=== PATIENT | female | born 1975 | race Caucasian/White ===

== ENCOUNTER → 2016-12-17 | Outpatient (CLI) | payer MEDICAID ==
[~2016-12-17] MED LIST: BACTRIM DS 8001 TA1 PO; PENICILLIN VK250 MG PO; PYRIDIUM200 M2 PO
[2016-12-17 19:45] LABS: HEMOGLOBIN 16.1 g/dL (12.2-16.2); LYMPH # 2.1 K/mm3 (0.7-4.5); LYMPH % 29.2 % (10-50.0)
[2016-12-18 12:18] LABS: BUN 13 mg/dL (7-18)
[2016-12-18 12:20] LABS: GFR (ESTIMATED) 69 ML/MIN (59-)
[2016-12-20 12:36] LABS: Vitamin B12 495 pg/mL (211-946)
[2016-12-21 14:40] LABS: Alpha-1-Globulin 0.2 g/dL (0.0-0.4); Alpha-2-Globulin 0.7 g/dL (0.4-1.0); Gamma Globulin 1.2 g/dL (0.4-1.8); Protein, Total 7.3 g/dL (6.0-8.5)
[2016-12-21 18:40] LABS: Antinuclear Antibodies, IFA Negative (.)
[2016-12-24 03:36] LABS: 1,25-Dihydroxy, Vitamin D-2 <10 pg/mL (.); 1,25-Dihydroxy, Vitamin D-3 40 pg/mL (.); Total 1,25-Dihydroxy,Vitamin D 41 pg/mL (.)
== END ==
LOC: LAB 18:25
PROVIDERS: Nurse Practitioner Family
DX: R41.3 Other amnesia (principal); R53.1 Weakness

== ENCOUNTER 2017-04-02 16:00 | Emergency (ER) | payer MEDICAID ==
[~2017-04-02] VITALS: Ht 170.2 cm; Wt 95.3 kg
[~2017-04-02 16:00] MED LIST changes: +ANUSOL-HC25 M1 RC; +FLEET REGU133 ML/BOT PR
[2017-04-02] MEDS ORDERED: NAPROXEN SODIU500 MG PO (16:19)
[2017-04-02] MEDS ORDERED: FLEXERIL10 MG PO (16:19)
--- NOTE | 2017-04-02 16:20 | Emergency Room Report ---
History of Present Illness Time Seen by [id number] Presenting Problem in Triage Pt arrived:Walked Presenting Problem:PT C/O PAIN IN HER RIGHT LOWER BACK THAT STARTED A COUPLE OF DAYS AGO AND HAS GOTTEN PROGRESSIVELY WORSE. 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 N Clinical Suspician of Infection? N Mental Status: 1 - Regular (Normal Baseline) Sepsis Risk:Low Sepsis Risk Have you (or family members/close friends) recently traveled outside the [place]? N If Yes, where/when: Have you had exposure to infectious disease within the past month? N TB? Other? Specify: Low back pain, with hx of same; took some old muscle relaxers with some relief, but is almost out. Also took Ibuprofen today. No urinary sx; no loss of bowel or bladder function; no acute neurological sx; pain is nonradiating. No acute trauma. ALLERGIES Coded Allergies: No Known Drug Allergies (08/11/15) Home Medications Reported Medications No Known Home Medications History Medical History General CAD? No Angina: No NE: No Hypertension? No Hyperlipidemia? No CHF? No DVT? No PE? No COPD? No Asthma? No Anemia? No GERD? No Gastric ulcers? No GI Bleed? No Hernia? No Thyroid Problems? No Hypothyroidism? No CVA? No Seizures? No Diabetes? No Renal Insuffiency? No End Stage Renal Disease? No UTI? No Stones? No GB Disease: Yes Nephritic Syndrome? No Asplenia? No Hepatitis? No Sickle Cell Disease? No Arthritis? No Migraines? No Cataracts? No Glaucoma? No MRSA? No HIV? No TB? No Anxiety? No Depression? No Cancer? 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 Cardiovascular normal exam, regular rate/rhythm Peripheral Pulses Pulses normal Yes Back muscle spasm (lower lumbar trigger point), strt leg raising(L)-NML, strt leg raising(R)-NML Extremities non-tender, normal range of motion, normal inspection, normal capillary refill, no calf tenderness, no pedal edema Strength 5 Upper Ext (L), 5 Upper Ext (R), 5 Lower Ext (L), 5 Lower Ext (R) Neurologic alert, normal exam, no motor/sensory deficits, oriented x 3 Glascow Coma Scale Glascow Coma Scale Response Value EYE response: 4 Spontaneously 4 MOTOR response: 6 OBEYS 6 VERBAL response: 5 Oriented & Converses 5 Total 15 Reflexes Reflexes normal Yes Skin intact, normal color, warm/dry, no rash cons.w/shingles Medical Decision Making LABS/Meds/Orders Pt receiving controlled substance in ED? No Departure Departure Time of Disposition 1617 Disposition DC Home or Self Care(routine) Clinical Impression Primary Impression: Lower back pain Qualifiers: Chronicity: unspecified Back pain laterality: right Sciatica presence: without sciatica Qualified Code: M54.5 - Low back pain Condition STABLE Referrals Jaspal HOOPER,Dayday Hopson (Family) Patient Instructions Low Back Pain Additional Instructions Naproxen, Flexeril, see Dr. Shay next week. Prescriptions Current Visit Scripts NAPROXEN (NAPROXEN 500MG TAB) 500 MG PO BIDP PRN muscular pain #20 TAB Cyclobenzaprine Hcl (Flexeril) 5 MG PO BID PRN muscle spasm #6 TAB ED Critical Care Critical Care No at 1616
--- NOTE | 2017-04-02 16:20 | Emergency Room Report ---
History of Present Illness Time Seen by [id number] Presenting Problem in Triage Pt arrived:Walked Presenting Problem:PT C/O PAIN IN HER RIGHT LOWER BACK THAT STARTED A COUPLE OF DAYS AGO AND HAS GOTTEN PROGRESSIVELY WORSE. 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 N Clinical Suspician of Infection? N Mental Status: 1 - Regular (Normal Baseline) Sepsis Risk:Low Sepsis Risk Have you (or family members/close friends) recently traveled outside the [place]? N If Yes, where/when: Have you had exposure to infectious disease within the past month? N TB? Other? Specify: Low back pain, with hx of same; took some old muscle relaxers with some relief, but is almost out. Also took Ibuprofen today. No urinary sx; no loss of bowel or bladder function; no acute neurological sx; pain is nonradiating. No acute trauma. ALLERGIES Coded Allergies: No Known Drug Allergies (08/11/15) Home Medications Reported Medications No Known Home Medications History Medical History General CAD? No Angina: No [place]: No Hypertension? No Hyperlipidemia? No CHF? No DVT? No PE? No COPD? No Asthma? No Anemia? No GERD? No Gastric ulcers? No GI Bleed? No Hernia? No Thyroid Problems? No Hypothyroidism? No CVA? No Seizures? No Diabetes? No Renal Insuffiency? No End Stage Renal Disease? No UTI? No Stones? No GB Disease: Yes Nephritic Syndrome? No Asplenia? No Hepatitis? No Sickle Cell Disease? No Arthritis? No Migraines? No Cataracts? No Glaucoma? No MRSA? No HIV? No TB? No Anxiety? No Depression? No Cancer? 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 Cardiovascular normal exam, regular rate/rhythm Peripheral Pulses Pulses normal Yes Back muscle spasm (lower lumbar trigger point), strt leg raising(L)-NML, strt leg raising(R)-NML Extremities non-tender, normal range of motion, normal inspection, normal capillary refill, no calf tenderness, no pedal edema Strength 5 Upper Ext (L), 5 Upper Ext (R), 5 Lower Ext (L), 5 Lower Ext (R) Neurologic alert, normal exam, no motor/sensory deficits, oriented x 3 Glascow Coma Scale Glascow Coma Scale Response Value EYE response: 4 Spontaneously 4 MOTOR response: 6 OBEYS 6 VERBAL response: 5 Oriented & Converses 5 Total 15 Reflexes Reflexes normal Yes Skin intact, normal color, warm/dry, no rash cons.w/shingles Medical Decision Making LABS/Meds/Orders Pt receiving controlled substance in ED? No Departure Departure Time of Disposition 1617 Disposition DC Home or Self Care(routine) Clinical Impression Primary Impression: Lower back pain Qualifiers: Chronicity: unspecified Back pain laterality: right Sciatica presence: without sciatica Qualified Code: M54.5 - Low back pain Condition STABLE Referrals Jaspal HOOPER,Dayday Hopson (Family) Patient Instructions Low Back Pain Additional Instructions Naproxen, Flexeril, see Dr. Shay next week. Prescriptions Current Visit Scripts NAPROXEN (NAPROXEN 500MG TAB) 500 MG PO BIDP PRN muscular pain #20 TAB Cyclobenzaprine Hcl (Flexeril) 5 MG PO BID PRN muscle spasm #6 TAB ED Critical Care Critical Care No at 1613
--- OUTSIDE RECORDS SUMMARY | 2017-04-02 16:21 | External Medical Summary Rpt ---
Author Author , LUIS Reece LUIS Address Unknown Phone [email or web address] Providers Care Endocrinology Nurse Name Role Phone ARNOLD LEIA, ARNOLD Unavailable Unavailable LEIA ARNOLD LEIA, ARNOLD Unavailable Unavailable LEIA GABRIEL BRO, GABRIEL Unavailable Unavailable BRO GABRIEL BRO, GABRIEL Unavailable Unavailable BRO WISE TER, WISE TER Unavailable Unavailable ALYNE, LAYNE Unavailable Unavailable LAYNE ALL, LAYNE ALL Unavailable Unavailable VIDALES PATRIA, VIDALES Unavailable Unavailable PATRIA VIDALES PATRIA, VIDALES Unavailable Unavailable [facility] Un[facility]available [facility] Unavailable Unavailable [facility] Unavailable Unavailable [facility] PASCALE RODRIGUEZ, Unavailable Unavailable PASCALE RODRIGUEZ PASCALE RODRIGUEZ, Unavailable Unavailable PASCALE RODRIGUEZ JORJE SUKUMAR, JORJE Unavailable Unavailable SUKUMAR ROSALES, ROSALES Unavailable Unavailable FRYMAN, FRYMAN Unavailable Unavailable FRYMAN EUG, FRYMAN Unavailable Unavailable EUG LEIF SUKUMAR, LEIF Unavailable Unavailable SUKUMAR [facility] Un[facility] Un[facility], [facility] Unavailable Unavailable [facility], [facility] VALLE YOMI, VALLE YOMI Unavailable Unavailable VALLE YOMI, VALLE YOMI Unavailable Unavailable [facility], Unavailable Unavailable [facility], Unavailable Unavailable [facility] PRUITT TRA, PRUITT TRA Unavailable Unavailable [facility] COYLE ZULEIKA, COYLE Unavailable Unavailable ZULEIKA COYLE ZULEIKA, COYLE Unavailable Unavailable ZULEIKA ABDIEL HAM, ABDIEL HAM Unavailable Unavailable ABDIEL HAM, ABDIEL HAM Unavailable Unavailable LAUREN SHANNAN, Unavailable Unavailable LAUREN SHANNAN LAUREN SHANNAN, Unavailable Unavailable LAUREN SHANNAN TRE LUNSFORD MD, Unavailable Unavailable TRE TA, Unavailable Unavailable ELSIE ALVARENGA, JON LYLE Unavailable Unavailable [facility]available [facility], [facility] PAVEZ, PAVEZ Unavailable Unavailable PICKLESIMER JR, Unavailable Unavailable PICKLESIMER JR SADEK, SADEK Unavailable Unavailable SCH[facility]STAD SYLVESTER, Unavailable Unavailable SCHULSTAD SYLVESTER [facility] SYLVESTER, Unavailable Unavailable [facility]ST[facility] SYLVESTER SCIFRES ANG, SCIFRES Unavailable Unavailable ANG SCIFRES ANG, SCIFRES Unavailable Unavailable ANDRE SNOWDEN, YOGI Unavailable Unavailable ISI FRANCO, Unavailable Unavailable SENG GALAN, JOAN GALAN Unavailable Unavailable Purpose Continuity of Care Document - 04-13-2012 through 2016 Problems Code Diagnosis DOS Provider Status [id number] ENCOUNTER 02-17-2017 [facility] GENERAL RTN W/O ABNORMAL FIND Z113 ENCOUNTER 02-17-2017 [facility] SCREEN [facility] INFECTIONS SEXL MODE TRANSMISSN R413 OTHER 02-03-2017 [facility] R51 HEADACHE 02-03-2017 [facility] R5383 OTHER 02-03-2017 [facility] [id number] ATTENTION 01-24-2017 [facility] CONCENTRATI GROUP ON DEFICIT K5900 CONSTIPATIO 01-14-2017 [facility] N PHYSICIANS UNSPECIFIED GROUP K649 UNSPECIFIED 01-14-2017 [facility] HEMORRHOIDS GROUP K644 RESIDUAL 01-12-2017 [facility] HEMORRHOIDA PHYSICIANS, L SKIN TAGS [facility] L089 LOCAL INF 12-17-2016 [facility] THE SKIN & PHYSICIANS SUBCUTANEOU GROUP S TISSUE UNS L729 FOLLICULAR 12-17-2016 [facility] CYST THE PHYSICIANS SKIN & SUBQ GROUP TISSUE UNS M6289 OTHER 12-17-2016 [facility] SPECIFIED PHYSICIANS DISORDERS GROUP OF MUSCLE R350 FREQUENCY 12-17-2016 [facility] OF [facility]ICIANS MICTURITION GROUP R531 WEAKNESS 12-17-2016 [facility] GROUP N390 URINARY 12-11-2016 [facility] INFECTION INC SITE NOT SPECIFIED Z720 TOBACCO USE 12-11-2016 [facility] INC K047 PERIAPICAL 10-22-2016 [facility] WITHOUT INC SINUS H6690 OTITIS 04-26-2016 [facility] MEDIA PHYSICIAN UNSPECIFIED GROUP UNSPECIFIED EAR J069 ACUTE UPPER 04-26-2016 [facility] PHYSICIAN RESPIRATORY GROUP INFECTION UNSPECIFIED J0190 ACUTE 01-07-2016 [facility] SINUSITIS PHYSICIANS UNSPECIFIED GROUP L0591 PILONIDAL 10-15-2015 [facility] CYST PHYSICIANS WITHOUT GROUP ABSCESS H524 PRESBYOPIA 09-29-2015 LEONARD CELAYA J329 CHRONIC 08-19-2015 [facility] SINUSITIS PHYSICIANS UNSPECIFIED GROUP H9193 UNSPECIFIED 07-04-2015 [facility] HEARING PHYSICIANS LOSS GROUP BILATERAL 34177 ACUT 05-28-2015 [facility] MEDIA W/O SPONT RUP EARDRUM 7234 BRACHIAL 04-16-2015 [facility] NEURITIS OR PHYSICIANS GROUP RADICULITIS NOS 20269 OTHER 04-16-2015 [facility] MALAISE AND PHYSICIANS FATIGUE GROUP 41979 ATTENTION 04-16-2015 [facility] OR PHYSICIANS CONCENTRATI GROUP ON DEFICIT 5990 URINARY 04-03-2015 [facility] TRACT PHYSICIANS INFECTION GROUP SITE NOT SPECIFIED 7840 HEADACHE 04-03-2015 SENG FRANCO 28943 HEADACHE 03-25-2015 [facility]UAL [facility] ACTIVITY 7231 CERVICALGIA 03-01-2015 [facility] 74986 JAW PAIN 03-01-2015 [facility] 8472 LUMBAR 03-01-2015 [facility], STRAIN PLL 8509 UNSPECIFIED 03-01-2015 [facility] CONCUSSION [facility], [facility] 920 CONTUSION 03-01-2015 [facility] OF FACE [facility]YS[facility], [facility] AND [facility] NECK EXCEPT EYE 33225 INJURY OF 03-01-2015 [facility] OTHER IMAGING ASS AND UNSPECIFIED 4610 ACUTE 01-20-2015 [facility] SINUS[facility]IS HOSPITAL 462 ACUTE 12-17-2014 [place] [facility] 29112 UNS 10-15-2014 [facility] GASTRITIS&G ASTRODUODIT IS W/O MENTION HEMORR 4619 ACUTE 08-17-2014 [facility] SINUSITIS, UNSPECIFIED 3674 PRESBYOPIA 06-14-2014 SCIFRES ANG V032 NEED PROPH 05-23-2014 [facility] VACCINATION W/TUBERCULO SIS VACCINE V705 HEALTH 05-23-2014 [facility] [place] [address] OBESITY, 05-01-2014 [facility] UNSPECIFIED 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 53760 UNSPECIFIED 03-25-2014 [facility] ZULEIKA ACUTE NONSUPPURAT MANDY OTITIS MEDIA 4779 ALLERGIC 03-25-2014 [facility] ZULEIKA RHINITIS CAUSE UNSPECIFIED 94696 OSTEOARTHRO 02-05-2014 [facility] S INVLV MX SITES BUT NOT SPEC GEN 3829 UNSPECIFIED 11-19-2013 [facility] OTITIS MEDIA 4660 ACUTE 11-19-2013 [facility] BRONCHITIS 3814 NONSUPPRATV 09-20-2013 [facility] VIC OTITIS MEDIA NOT SPEC ACUT/CHRON 470 DEVIATED 09-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 7242 LUMBAGO 01-19-2013 [facility] 7213 LUMBOSACRAL 12-07-2012 ABDIEL HAM SPONDYLOSIS WITHOUT MYELOPATHY 7245 UNSPECIFIED 11-24-2012 [facility] BACKACHE 7243 SCIATICA 10-27-2012 [facility] 4871 INFLUENZA 10-12-2012 [facility] WITH OTHER RESPIRATORY MANIFESTATI ONS 6961 OTHER 08-08-2012 [facility] PSORIASIS AND SIMILAR DISORDERS 6262 EXCESSIVE 05-12-2012 VIDALES PATRIA OR FREQUENT MENSTRUATIO N 6268 OTH D/O 05-12-2012 COMMUNITY MENSTRUATIO ANESTH OF N&OTH ABN THE BLUE BLEED FE GNT TRACT V7231 ROUTINE 05-10-2012 [facility] GYNECOLOGIC AL EXAMINATION 2181 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-03-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 3688 OTHER 05-03-2012 [place] V[facility]UAL [facility] ASS DISTURBANCE S 6170 ENDOMETRIOS 05-03-2012 [facility] IS OF UTERUS 6212 HYPERTROPHY 05-03-2012 VIDALES [place] OF UTERUS 7804 DIZZINESS 05-03-2012 [place] [facility] V692 PROBLEMS 04-19-2012 [facility] RELATED TO PHYSICIANS HIGH-RISK [facility] SEXUAL BEHAVIOR 05399 PRADIP 04-17-2012 LAUREN MIGRAINE SHANNAN NEC W/O INTRACT W/O STAT MIGRNOSUS 4770 ALLERGIC 04-17-2012 LAUREN RHINITIS SHANNAN DUE TO POLLEN 4772 ALLERGIC 04-17-2012 LAUREN RHINITIS SHANNAN DUE TO ANIMAL HAIR AND DANDER 4778 ALLERGIC 04-17-2012 LAUREN RHINITIS SHANNAN DUE TO OTHER ALLERGEN V727 DIAGNOSTIC 04-17-2012 LAUREN SKIN AND SHANNAN SENSITIZATI ON TESTS V720 EXAMINATION 04-13-2012 SCIFRES ANG OF EYES AND VISION K59.00 CONSTIPATIO N, UNSPECIFIED K64.4 RESIDUAL HEMORRHOIDA L SKIN TAGS S00.83XA CONTUSION OF OTHER PART OF HEAD, INITIAL ENCOUNTER S06.0X9A CONCUSSION W LOSS OF CONSCIOUSNE SS OF UNSP DURATION, INIT S16.1XXA STRAIN OF MUSCLE, FASCIA AND TENDON AT NECK LEVEL, INIT Allergies, Adverse Reactions, Alerts Type Allergy to substance Drug Allergy Adverse Reaction to Substance Substance Reaction Severity INGREDIENT: NO KNOWN Unknown Unknown - NO KNOWN DRUG ALLERGY No Known Drug Unknown Unknown Allergies Medications Na ND Rx Da Fi Fi Am Da Di Ph RX Ph St me C No te ll ll ou ys ag ar # ys at rm s nt no ma ic us Or Da si cy ia de te s n re d CI 13 06 07 30 30 00 RI Ac TA 66 -1 -2 .0 00 TE ti LO 80 5- 1- 00 01 ve AZ 00 20 20 18 AI AM 90 17 17 81 D 1 30 PH HB AR R MA 10 CY MG #3 93 TA 8 BL ET LE 00 06 07 30 30 00 RI Ac VO 37 -0 -0 .0 00 TE ti TH 81 7- 7- 00 01 ve YR 80 20 20 18 AI OX 07 17 17 15 D IN 7 93 PH E AR 25 MA CY MC G #3 TA 93 BL 8 ET PO 62 05 06 52 30 00 RI Ac LY 17 -1 -0 7. 00 TE ti ET 50 0- 9- 00 01 ve HY 44 20 20 0 18 AI LE 23 17 17 34 D NE 1 66 PH AR GL MA YC CY OL #3 33 93 50 8 PO WD HY 00 05 06 [address] 47 -1 -0 .0 00 TE ti OC 20 0- 9- 00 01 ve OR 33 20 20 18 AI TI 73 17 17 34 D SO 0 59 PH NE AR MA 2. CY 5% #3 CR 93 EA 8 M CE 65 04 06 20 10 00 RI Ac PH 86 -2 -0 .0 00 TE ti AL 20 8- 2- 00 01 ve EX 01 20 20 18 AI IN 90 17 17 16 D 1 74 PH 50 AR 0 MA MG CY CA #3 PS 93 UL 8 E LE 00 04 05 30 30 00 RI Ac VO 37 -2 -2 .0 00 TE ti TH 81 6- 6- 00 01 ve YR 80 20 20 18 AI OX 07 17 17 15 D IN 7 93 PH E AR 25 MA CY MC G #3 TA 93 BL 8 ET FL 68 04 05 3. 9 00 RI Ac UC 46 -1 -1 00 00 TE ti ON 20 0- 2- 0 01 ve AZ 10 20 20 17 AI OL 34 17 17 92 D E 0 32 PH 15 AR 0 MA MG CY TA #3 BL 93 ET 8 WORKMAN 53 04 05 10 5 00 RI Ac LF 48 -0 -1 .0 00 TE ti AM 90 8- 2- 00 01 ve ET 14 20 20 17 AI HO 60 17 17 90 D XA 1 88 PH ZO AR LE MA -T CY MP #3 DS 93 8 TA BL ET PH 42 04 05 6. 2 00 RI Ac EN 19 -0 -1 00 00 TE ti AZ 20 8- 2- 0 01 ve OP 80 20 20 17 AI YR 20 17 17 90 D ID 1 89 PH IN AR E MA 20 CY 0 MG #3 93 TA 8 B AZ 50 12 04 6. 5 00 RI Ac IT 11 -0 -0 00 00 TE ti HR 10 4- 7- 0 01 ve OM 78 20 20 10 AI YC 76 15 17 92 D IN 6 88 PH AR 25 MA 0 CY MG #3 TA 93 BL 8 ET PE 16 02 03 21 7 00 RI Ac NI 71 -1 -2 .0 00 TE ti CI 40 7- 4- 00 01 ve LL 23 20 20 17 AI IN 40 17 17 16 D 1 64 PH VK AR MA 25 CY 0 MG #3 93 TA 8 BL ET SO 00 10 0 No DI 40 -0 UM 97 3- Lo 98 20 ng CH 30 13 er LO 9 RI Ac DE ti ve 0. 9% SO HARDIK TI ON Sa 63 10 0 No li 80 -0 ne 70 3- Lo 10 20 ng Fl 07 13 er us 5 h Ac 10 ti ML ve Sy ri ng e KE 00 10 0 No TO 40 -0 RO 93 3- Lo LA 79 20 ng C 50 13 er 30 1 Ac MG ti /M ve L AL Vital Signs 06-07-2013 21:27 Name Value Interpretat Reference Comment ion Range BP 70 mm[Hg] Diastolic BP Systolic 129 mm[Hg] Heart 62 /min Rate/Pulse O2% 96 % Respiratory 20 /min Rate 06-07-2013 20:06 Name Value Interpretat Reference Comment ion Range BP 74 mm[Hg] Diastolic BP Systolic 147 mm[Hg] Heart 79 /min Rate/Pulse O2% 97 % Respiratory 20 /min Rate Results Labs Lab Lab Date Result Refere Interp Status Commen Order Detail nces retati t Range on COMPREHENSIVE METABOLIC PANEL (06-07-2013 20:20) Glucose 111 74-106 complet 013 mg/dL ed Bld-mCn 20:20 c BUN 11 7-18 complet Bld-mCn 013 mg/dL ed c 20:20 Creat 0.8 0.6-1.0 complet SerPl-m 013 mg/dL ed Cnc 20:20 GFR 80 59- complet (ESTIMA 013 ML/MIN ed JOHN) 20:20 Sodium 140 136-145 complet SerPl-s 013 mmoL/L ed Cnc 20:20 Potassi 3.7 3.5-5.1 complet um 013 mmoL/L ed SerPl-s 20:20 Cnc Chlorid 103 98-107 complet e 013 mmoL/L ed SerPl-s 20:20 Cnc CO2 27 21.0-32 complet SerPl-s 013 mmoL/L .0 ed Cnc 20:20 Calcium 8.2 8.5-10. complet 013 mg/dL 1 ed SerPl-m 20:20 Cnc Prot 6.5 6.4-8.2 complet SerPl-m 013 gm/dL ed Cnc 20:20 Albumin 3.4 3.4-5.0 complet 013 gm/dL ed SerPl-m 20:20 Cnc Globuli 10-03-2 3.1 1.3-3.2 complet n 013 gm/dL ed Ser-mCn 20:20 c Albumin 06-07-2 1.1 UNK 1.1-1.8 complet /Glob 013 ed SerPl-m 20:20 Rto Bilirub 2 0.3 0.2-1.0 complet 013 mg/dL ed SerPl-m 20:20 Cnc AST 06-07-2 16 U/L 15-37 complet SerPl-c 013 ed Cnc 20:20 ALT 06-07-2 37 U/L 30-65 complet SerPl-c 013 ed Cnc 20:20 ALP 06-07-2 104 U/L 50-136 complet SerPl-c 013 ed Cnc 20:20 Amylase SerPl-cCnc (06-07-2013 20:20) Amylase 06-07-2 31 U/L 25-115 complet 013 ed SerPl-c 20:20 Cnc LIPASE (06-07-2013 20:20) LIPASE 03-2 108 U/L 73-393 complet 013 ed 20:20 CBC with AUTO DIFF (06-07-2013 20:20) WBC # 03-2 9.8 4.8-10. complet Bld 013 K/MM3 8 ed Auto 20:20 RBC # 1003-2 4.15 4.2-5.4 complet Bld 013 M/mm3 ed Auto 20:20 Hgb 03-2 13.8 12.2-16 complet Bld-mCn 013 g/dL .2 ed c 20:20 Hct Fr 06-07- 39.2 % 37.0-47 complet Bld 013 .0 ed 20:20 MCV RBC 06-07-2 94.4 fl 82.2-97 complet 013 .8 ed 20:20 MCH RBC 03-2 33.3 pg 27-31.2 complet Qn 013 ed Auto 20:20 MEAN 06-07-2 35.3 31.8-35 complet CORPUSC 013 g/dl .4 ed ULAR 20:20 HGB CONC RDW RBC 03-2 14.3 % 11.5-17 complet Auto 013 .5 ed 20:20 Platele 06-07-2 249 142-424 complet t Bld 013 K/mm3 ed Ql 20:20 Manual MEAN 10--2 8.1 fl 7.4-10. complet PLATELE 013 4 ed T 20:20 VOLUME Granulo 10-03-2 67.5 % 37.0-80 complet cytes 013 .0 ed Fr Bld 20:20 Auto LYMPH % 10-03-2 22.8 % 10-50.0 complet 013 ed 20:20 Monocyt 10-03-2 5.7 % 1.7-9.3 complet es Fr 013 ed Bld 20:20 Auto Eosinop 10-03-2 3.5 % 0.1-12. complet hil Fr 013 0 ed Bld 20:20 Auto Basophi 10-03-2 0.6 % 0.1-2.0 complet ls Fr 013 ed Bld 20:20 Auto Granulo 10-03-2 6.6 1.8-7.8 complet cytes # 013 K/mm3 ed Bld 20:20 Auto Lymphoc 10-03-2 2.2 0.7-4.5 complet ytes Fr 013 K/mm3 ed Bld 20:20 Auto Monocyt 10-03-2 0.6 0.1-1.0 complet es # 013 K/mm3 ed Bld 20:20 Auto Eosinop 10-03-2 0.3 0.0-0.4 complet hil # 013 K/mm3 ed Bld 20:20 Auto Basophi 10-03-2 0.1 0-0.2 complet ls # 013 K/MM3 ed Bld 20:20 Auto URINALYSIS/COMPLETE (06-07-2013 19:35) URINE 06-07-2 YELLOW YELLOW complet COLOR 013 ed 19:35 URINE 06-07-2 CLEAR CLEAR complet APPEARA 013 ed NCE 19:35 URINE 06-07-2 NEGATIV NEG complet GLUCOSE 013 E ed - 19:35 DIPSTIC K URINE 06-07-2 NEGATIV NEG complet BILIRUB 013 E ed IN - 19:35 DIPSTIC K URINE 06-07-2 NEGATIV NEG complet KETONE 013 E mg/dL ed 19:35 URINE 06-07-2 1.020 1.005-1 complet SPECIFI 013 UNK .030 ed C 19:35 GRAVITY URINE 06-07-2 TRACE-L NEG complet BLOOD 013 YSED ed 19:35 URINE 06-07-2 7.0 UNK 5.0-8.5 complet PH 013 ed 19:35 URINE 2 NEGATIV NEG complet PROTEIN 013 E mg/dL ed - 19:35 DIPSTIC K URINE 06-07-2 0.2 NEG complet UROBILI 013 E.U./dL ed NOGEN - 19:35 DIPSTIC K URINE 06-07-2 NEGATIV NEG complet NITRATE 013 E ed - 19:35 DIPSTIC K URINE 06-07-2 NEGATIV NEG complet LEUK 013 E ed ESTERAS 19:35 E URINE 06-07-2 OCC 0 complet RBC 013 rbc/hpf ed 19:35 URINE 06-07-2 OCC O complet WBC 013 wbc/hpf ed 19:35 URINE 10-20 0-5 complet SQUAMOU 013 #/hpf ed S CELLS 19:35 URINE TRACE O complet BACTERI 013 ed A 19:35 Procedures Procedure DOS Code Location Performer Comment CYTP C/V 34552 [facility] AUT[facility] THIN [facility] ER JR LYR PREPJ SCR MNL RESCR PHYS IADNA 83692 [facility] NEISSERIA [facility] ER JR GONORRHOE AE AMPLIFIED PROBE TQ IADNA 52732 [facility] CHLAMYDIA [facility] ER JR TRACHOMAT IS AMPLIFIED PROBE TQ MRI BRAIN 33371 [place] [facility] BRAIN 7 MEDICAL STEM W/O IMAGING W/CONTRAS ASS T MATERIAL BLOOD 00999 [facility] COMPLETE INC INC AUTO&[place] [address] [facility] FREE [facility] [place] [address] [facility] THYROID [facility] STIMULATI INC INC NG HORMONE TSH COMPREHEN 50437 [facility] SIVE [facility] METABOLIC INC INC PANEL ANTINUCLE 01020 [facility] AR [facility] ANTIBODIE INC INC S BARRY CYANOCOBA 56587 [facility] KEISHA [facility] VITAMIN INC INC B-12 PROTEIN 42247 [facility] ELECTROPH 7 [facility] ORETIC INC INC FRACTJ&QU ANTJ SERUM SEDIMENTA 66582 [facility] TION RATE 7 [facility] RBC INC INC NON-AUTOM ATED CULTURE 95119 [facility] BACTERIAL [facility] INC INC QUANTTATI VE COLONY COUNT URINE URNLS DIP 45143 [facility] 7 [facility] STICK/TAB INC INC LET RGNT AUTO W/O MICROSCOP Y THERAPEUT [address]8521 [facility] ROSAL[facility] IC 6 PHYSICIAN PROPHYLAC GROUP TIC/DX INJECTION SUBQ/IM INJECTION J0696 [facility] 6 PHYSICIAN CEFTRIAXO GROUP NE SODIUM PER 250 MG OPHTH 14889 [facility] 6 XM&EVAL COMPRHNSV ESTAB PT 1/> THERAPEUT 97315 [facility] PHYSICIAN SUKUMAR PROPHYLAC S GROUP TIC/DX INJECTION SUBQ/IM INJECTION J0696 [facility] 6 PHYSICIAN SUKUMAR CEFTRIAXO S GROUP NE SODIUM PER 250 MG INJECTION J1040 [facility] 6 PHYSICIAN SUKUMAR METHYLPRE S GROUP DNISOLONE ACETATE 80 MG INJECTION J1040 [facility] 5 PHYSICIAN SUKUMAR METHYLPRE S GROUP DNISOLONE ACETATE 80 MG INJECTION J0696 [facility] 5 PHYSICIAN SUKUMAR CEFTRIAXO S GROUP NE SODIUM PER 250 MG THERAPEUT 37535 [facility] IC 5 PHYSICIAN SUKUMAR PROPHYLAC S GROUP TIC/DX INJECTION SUBQ/IM THERAPEUT 13846 [facility] KAYE IC 5 [facility] TIC/DX INJECTION SUBQ/IM INJECTION J1100 [facility] 5 [facility] SONE [place] [address] [place] [address] SENG GALAN HEAD/BRAI 5 Haroldo FRANCO N W/O CONTRAST MATERIAL CULTURE 84139 [facility] BACTERIAL 5 [facility] INC INC QUANTTATI VE COLONY COUNT URINE LOCM Q9967 [facility] [phone] 5 [facility] MG/ML INC [place] [address] [place] [facility] 5 MEDICAL RODRIGUEZ HY HEAD IMAGING W/CONTRAS ASS T/[place] [address] [facility] ALL MAXILLOFA 5 MEDICAL CIAL W/[place] [address] [facility] ALL HEAD/BRAI 5 MEDICAL N W/[place] [address] [place] [facility] ALL CERVICAL 5 MEDICAL SPINE W/O IMAGING CONTRAST ASS MATERIAL THERAPEUT 14097 [facility] RECINOS IC 5 [facility] TIC/DX INJECTION SUBQ/IM INJECTION J0696 [facility] KHANRON 5 [facility] NE SODIUM PER 250 MG INJECTION J1040 [facility] RECINOS 5 [facility] DNISOLONE ACET[place] [address] [place] [address] [facility] HEAD/BRAI 5 [facility] N W/O INC INC CONTRAST MATERIAL COLLECTIO 72408 [facility] N VENOUS 5 [facility] [place] [address] [facility] FREE 5 [facility] THYROXINE INC INC 25 73315 [facility] HYDROXY 5 [facility] INCLUDES INC INC FRACTIONS IF PERFORMED COMPREHEN 33811 [facility] SIVE 5 [facility] [address] [facility] THYROID 5 [facility] STIMULATI INC INC NG HORMONE TSH BLOOD 52894 [facility] COUNT 5 [facility] COMPLETE INC INC AUTO&AUTO DIFRNTL WBC OPHTH 30856 [facility] 4 ANG ANG XM&EVAL COMPRHNSV ESTAB PT 1/> SKIN TEST 33268 [facility] AGUILA 4 LEIA LEIA TUBERCULO SIS INTRADERM AL INJECTION J3420 [facility] AGUILA VIT B-12 4 LEIA LEIA CYANOCOBA KEISHA TO 1000 MCG INJECTION J3420 [facility] AGUILA VIT B-12 4 LEIA LEIA CYANOCOBA KEISHA TO 1000 MCG INJ J0702 [facility] AGUILA BETAMETHA 4 LEIA LEIA SONE ACETATE & PHOSPHATE 3 MG INJECTION J3420 [facility] AGUILA VIT B-12 4 LEIA LEIA CYANOCOBA KEISHA TO 1000 MCG INJECTION J3420 [facility] VIT B-12 4 LEIA LEIA CYANOCOBA KEISHA TO 1000 MCG INJECTION J0696 [facility] 4 LEIA LEIA CEFTRIAXO NE SODIUM PER 250 MG INJ J0702 [facility] BETAMETHA 4 LEIA LEIA SONE ACETATE & PHOSPHATE 3 MG INJECTION J3420 [facility] VIT B-12 4 LEIA LEIA CYANOCOBA KEISHA TO 1000 MCG INJECTION J3420 [facility] VIT B-12 3 LEIA LEIA CYANOCOBA KEISHA TO 1000 MCG ESOPHAGOG 87464 ERIK VALENCIA ASTRODUOD 3 SYLVESTER SYLVESTER ENOSCOPY TRANSORAL DIAGNOSTI C COLONOSCO 67885 ERIK VALENCIA PY FLX DX 3 SYLVESTER SYLVESTER W/COLLJ SPEC WHEN PFRMD RADEX ABD 23513 PASCALE PASCALE COMPL 3 RODRIGUEZ RODRIGUEZ AQT ABD W/S/E/D VIEWS 1 [place] [address] [facility] THERAPY/P INC INC ROPHYLAXI S /DX 1ST TO 1 HR THERAPEUT 87557 [facility] IC [facility] INJECTION INC [place] [address] [facility]ION [facility] THERAPY INC INC PROPHYLAX IS/DX EA HOUR URNLS DIP 18019 [facility] STICK/TAB INC INC LET REAGENT AUTO MICROSCOP Y BLOOD 65904 [facility] COUNT 3 [facility] COMPLETE INC INC AUTO&[place] [address] [facility] LIPASE 3 [facility] INC INC COMPREHEN 82706 [facility] SIVE [facility] [place] [address] [facility] AMYLASE 3 [facility] INC INC INJECTION J3420 [facility] VIT B-12 3 LEIA LEIA CYANOCOBA KEISHA TO 1000 MCG RADEX 72167 [facility] SPINE 3 [facility] LUMBOSACR INC INC AL MINIMUM 4 VIEWS INJECTION J3420 [facility] VIT B-12 3 LEIA LEIA CYANOCOBA KEISHA TO 1000 MCG INJECTION J0696 [facility] 3 LEIA LEIA CEFTRIAXO NE SODIUM PER 250 MG DRUG SCR G0434 ABDIEL HAM ABDIEL HAM NOT 3 CHROMATOG RAPHIC; ANY NUMBER PT ENC INJECTION J3420 [facility] VIT B-12 3 LEIA LEIA CYANOCOBA KEISHA TO 1000 MCG INJ J0702 [facility] BETAMETHA 3 LEIA LEIA SONE ACETATE & PHOSPHATE 3 MG INJECTION J3420 [facility] VIT B-12 3 LEIA LEIA CYANOCOBA KEISHA TO 1000 MCG INJECTION J3420 [facility] VIT B-12 2 LEIA LEIA CYANOCOBA KEISHA TO 1000 MCG RADEX 10035 PRUITT TRA PRUITT TRA SPINE 2 LUMBOSACR AL 2/3 VIEWS INJECTION J3420 [facility] VIT B-12 2 LEIA LEIA CYANOCOBA KEISHA TO 1000 MCG INJECTION J0696 [facility] 2 LEIA LEIA CEFTRIAXO NE SODIUM PER 250 MG ANES 90858 [facility] HYSTEROSC 2 ANESTH ISI OPY&/HYST OF THE EROSALPIN BLUE GOGRAPHY W/BX HYSTEROSC 85090 FLASH VIDALES OPY 2 PATRIA PATRIA ENDOMETRI AL ABLATION BLOOD 70538 [facility] COUNT [facility] COMPLETE INC INC AUTO&AUTO DIFRNTL WBC BASIC 13394 [facility] METABOLIC 2 [facility] PANEL INC INC CALCIUM TOTAL URNLS DIP 72231 FLASH VIDALES 2 PATRIA PATRIA STICK/TAB LET RGNT NON-AUTO W/O MICRSCP INJ A9577 [facility] GADOBENAT 2 [facility] E INC [place] [address] FLASH VIDALES TRANSVAGI 2 PATRIA PATRIA NAL BLOOD 81768 [facility] COUNT 2 [facility] COMPLETE INC INC AUTO&AUTO DIFRNTL WBC MRI BRAIN 32474 [facility] BRAIN 2 [facility] STEM W/O INC INC W/CONTRAS T MATERIAL ENDOMETRI 33913 FLASH VIDALES AL BX 2 PATRIA PATRIA W/WO ENDOCERVI X BX W/O DILAT SPX CUL BACT 57667 COMBINED COMBINED XCPT 2 PHYSICIAN PHYSICIAN URINE S LA S LA BLOOD/STO OL AEROBIC ISOL ANTIBODY 55314 COMBINED COMBINED CHLAMYDIA 2 PHYSICIAN PHYSICIAN S LA S LA PERCUTANE 60415 LAUREN LAUREN OUS TESTS 2 SHANNAN SHANNAN W/ALLERGE MONICA EXTRACTS INTRACUTA 51000 LAUREN LAUREN NEOUS 2 SHANNAN SHANNAN TESTS W/ALLERGE MONICA EXTRACTS OPHTH 75199 SCIFRES SCIFRES MEDICAL 2 ANG ANG XM&EVAL COMPRE NEW PT 1/> VST DETERMINA 24274 SCIFRES SCIFRES TION 2 ANG ANG [facility] Encounters Encounter Start End Date Code Location Performer Type Date INITIAL 91865 [facility] PREVENTIV 7 7 PHYSICIAN E S GROUP MEDICINE NEW PATIENT 40-[address] [facility] PAVEZ OUTPATIEN 7 7 PHYSICIAN T NEW 45 S GROUP MINUTES OFFICE 83484 [facility] FRYMAN OUTPATIEN 7 7 PHYSICIAN T VISIT S GROUP 15 MINUTES EMERGENCY 40848 [facility] T VISIT LOW/MODER SEVERITY [facility] T EMERGENCY 51328 ELMA SCHUSTER 7 7 PHYSICIAN DEPARTMEN S, PLLC T VISIT MODERATE SEVERITY OFFICE 11912 [facility] OUTPATIEN 7 7 PHYSICIAN T VISIT S GROUP 25 MINUTES [facility] T OFFICE 87153 [facility] 7 7 [facility] T VISIT 5 INC MINUTES OFFICE 76324 [facility]EN 7 7 [facility] T VISIT 5 INC MINUTES [facility] T OFFICE 09345 [facility] ROSALES OUTPATIEN 6 6 PHYSICIAN T VISIT GROUP [address]ES [address] [facility] JORJE OUTPATIEN 6 6 PHYSICIAN SUKUMAR T VISIT S GROUP [address]ES [address] [facility] WISE [facility] OUTPATIEN 6 6 PHYSICIAN T VISIT S GROUP [address]ES [address] [facility] JOJRE OUTPATIEN 6 6 PHYSICIAN SUKUMAR T VISIT S GROUP [address]ES [address] [facility] LEIF OUTPATIEN 5 5 PHYSICIAN SUKUMAR T VISIT S GROUP 10 MINUTES OFFICE 01413 [facility] ROJASADDIS OUTPATIEN 5 5 [facility] [address]ES [address] [facility] MONGIARDO OUTPATIEN 5 5 PHYSICIAN FRA T NEW 30 S GROUP MINUTES OFFICE 95041 [facility] KHANRON OUTPATIEN 5 5 [facility] [address]ES [address] [facility] OUTPATIEN 5 5 PHYSICIAN T VISIT S GROUP [address]ES [address] [facility] OUTPATIEN 5 5 PHYSICIAN T VISIT S GROUP 15 MINUTES [facility] 5 5 [facility] INC T OFFICE 00424 [facility] LEIF OUTPATIEN 5 5 PHYSICIAN SUKUMAR T VISIT S GROUP 15 MINUTES EMERGENCY 39363 ELMA YADAV 5 5 PHYSICIAN SUKUMAR DEPARTMEN S, PLLC T VISIT HIGH/URGE NT SEVERITY OFFICE 46768 [facility] JORJE OUTPATIEN 5 5 [facility] [address]ES [address] [facility] VARGAS OUTPATIEN 5 5 PHYSICIAN EUG T VISIT S GROUP [address]ES [address] [facility] LEIF OUTPATIEN 5 5 PHYSICIAN SUKUMAR T VISIT S GROUP 15 MINUTES [facility] T OFFICE 79964 [facility] OUTPATIEN 5 5 PHYSICIAN T VISIT S GROUP 10 MINUTES OFFICE 49734 [facility] RECINOS OUTPATIEN [address] MINUTES OFFICE 30014 [place] LAWSONEN 5 5 [facility] LEIA T VISIT 15 MINUTES OFFICE 64174 [place] STORM 4 4 [facility] LE[facility] T VISIT 15 MINUTES OFFICE 56790 [place] STORM 4 4 [facility] LEIA T VISIT 15 MINUTES OFFICE 15381 [facility] STORM 4 4 [facility] LE[facility] T VISIT 15 MINUTES OFFICE 06132 [facility] STORM 4 4 [facility] LEIA T VISIT 15 MINUTES OFFICE 93919 JONNA STORM 4 4 ZULEIKA ZULEIKA T VISIT 25 MINUTES OFFICE 58834 [facility] STORM 4 4 [facility] LEIA T VISIT 15 MINUTES OFFICE 69316 [facility] STORM 4 4 [facility] LEIA T VISIT 15 MINUTES OFFICE 68701 [facility] STORM 4 4 [facility] LEIA T VISIT 15 MINUTES OFFICE 88670 [facility] STORM 4 4 [facility] LEIA T VISIT 15 MINUTES OFFICE 46531 [facility] OUTPATIEN 4 4 ZULEIKA ZUELIKA T NEW 30 MINUTES OFFICE 01595 [facility] AGUILA EMETERIO 4 4 [facility] LEIA T VISIT 15 MINUTES OFFICE 90025 [facility] AGU[facility] RENNYEN 4 4 [facility] LEIA T VISIT 15 MINUTES OFFICE 75583 [facility] ANDERSONVIDAEN 3 3 LEIA LEIA T VISIT 15 MINUTES OFFICE 50910 [facility] ANDERSONVIDAEN 3 3 [facility] LEIA T VISIT 15 MINUTES OFFICE 14782 [facility] ANDERSONVIDAEN 3 3 [facility] LEIA T VISIT 15 MINUTES OFFICE 96298 [facility] ANDERSONVIDAEN 3 3 [facility] LEIA T VISIT 15 MINUTES [facility] T Emergency TRENA [facility] LUNSFORD (ER) 3 19:39 3 21:28 [facility] - 3 3 [facility] OUTPATI[facility] INC T EMERGENCY 91705 [facility] 3 3 [facility] T VISIT HIGH/URGE NT SEVERITY OFFICE 39689 [place] ALLIENASIM RENNYEN 3 3 LEIA LEIA T VISIT 15 MINUTES OFFICE 28361 [facility] VALENCIA CONSULTAT 3 3 SYLVESTER SYLVESTER ION NEW/ESTAB PATIENT 60 MIN OFFICE 89419 ALLIENASIM [place] STORM 3 3 [facility] LEIA T VISIT 15 MINUTES OFFICE 50759 ALLIENASIM [place] OUTVIDAEN 3 3 [facility] LEIA T VISIT 15 MINUTES OFFICE 99155 ALLIENASIM [place] STORM 3 3 [facility] LEIA T VISIT 15 MINUTES [facility] T OFFICE 40690 ALLIENASIM [place] STORM 3 3 [facility] LEIA T VISIT 15 MINUTES OFFICE 84087 ABDIEL MILLER OUTPATIEN 3 3 T NEW 45 MINUTES OFFICE 52968 [facility] AGUILA OUTPATIEN 3 3 [facility] LEIA T VISIT 15 MINUTES OFFICE 72385 [facility] AGUILA OUTPATIEN 3 3 LEIA LEIA T VISIT 15 MINUTES OFFICE 02454 [facility] AGUIL[facility] OUTPATIEN 3 3 LEIA LEIA T VISIT 15 MINUTES OFFICE 47943 [facility] AGUILA OUTPATIEN 2 2 LEIA LEIA T VISIT 15 MINUTES OFFICE 08350 PRUITT TRA PRUITT TRA CONSULTAT 2 2 ION NEW/ESTAB PATIENT 60 MIN OFFICE 24208 [facility] AGUILA OUTPATIEN 2 2 [facility] LEIA T VISIT 15 MINUTES OFFICE 83723 JON ALVARENGA OUTPATIEN 2 2 T VISIT 25 MINUTES OFFICE 24623 [place] AGUILA OUTPATIEN 2 2 [facility] LEIA T VISIT 15 MINUTES OFFICE 40045 [place] AGUILA OUTPATIEN 2 2 [facility] LEIA T VISIT 15 MINUTES [facility] T PERIODIC 29214 FL[facility] VIDALES PREVENTIV 2 2 PATRIA PATRIA E MED EST PATIENT 18-39 YRS [facility] 2 [facility] T OFFICE 77735 JON ALVARENGA CONSULTAT 2 2 ION NEW/ESTAB PATIENT 60 MIN OFFICE 22034 FLASH VIDALES OUTPATIEN 2 2 PATRIA PATRIA T NEW 45 MINUTES OFFICE 41744 LAUREN LAUREN CONSULTAT 2 2 SHANNAN SHANNAN ION NEW/ESTAB PATIENT 60 MIN
--- OUTSIDE RECORDS SUMMARY | 2017-04-02 16:21 | External Medical Summary Rpt ---
Author Author , LUIS Reece LUIS Address Unknown Phone [email or web address] Care Team Providers Care Management Associate Name Role Phone ARNOLD LEIA, ARNOLD Unavailable Unavailable LEIA ARNOLD LEIA, ARNOLD Unavailable Unavailable LEIA GABRIEL BRO, GABRIEL Unavailable Unavailable BRO GABRIEL BRO, GABRIEL Unavailable Unavailable BRO WISE TER, WISE TER Unavailable Unavailable LAYNE, LAYNE Unavailable Unavailable LAYNE ALL, LAYNE ALL [...] Unavailable Unavailable INC, [facility] Unavailable Unavailable [facility], [facility] VALLE YOMI, VALLE YOMI Unavailable Unavailable VALLE YOMI, VALLE YOMI Unavailable [facility]available [facility], Unavailable Unavailable [facility], Unavailable Unavailable [facility] PRUITT TRA, PRUITT TRA Unavailable Unavailable [facility] COYLE ZULEIKA, COYLE Unavailable Unavailable ZULEIKA COYLE ZULEIKA, COYLE Unavailable Unavailable ZULE[facility]A ABDIEL HAM, ABDIEL HAM Unavailable Unavailable ABDIEL HAM, ABDIEL HAM Unavailable Unavailable LAUREN SHANNAN, Unavailable Unavailable LAUREN SHANNAN LAUREN SHANNAN, Unavailable Unavailable LAURNE SHANNAN TRE LUNSFORD MD, Unavailable Unavailable TRE [...] 2016 Problems Code Diagnosis DOS Provider Status [id number] ENCOUNTER 02-17-2017 [facility] G[facility]ST RELATIONS [facility] GENERAL RTN W/O ABNORMAL FIND Z113 ENCOUNTER 02-17-2017 [facility], SCREEN [facility] INFECTIONS SEXL MODE TRANSMISSN R413 OTHER 02-03-2017 [facility] R51 HEADACHE 02-03-2017 [facility] R5383 OTHER 02-03-2017 [facility] [id number] ATTENTION 01-24-2017 [facility] AND [facility] CONCENTRATI GROUP ON DEFICIT K5900 CONSTIPATIO 01-14-2017 [facility] N PHYSICIANS UNSPECIFIED GROUP K649 UNSPECIFIED 01-14-2017 [facility] PHYSICIANS HEMORRHOIDS GROUP K644 RESIDUAL 01-12-2017 [facility] HEMORRHOIDA PHYSICIANS, L SKIN TAGS [facility] L089 LOCAL INF 12-17-2016 [facility] THE SKIN & PHYSICIANS SUBCUTANEOU GROUP S TISSUE UNS L729 FOLLICULAR 12-17-2016 [facility] CYST THE PHYSICIANS SKIN & SUBQ GROUP TISSUE UNS M6289 OTHER 12-17-2016 [facility] SPECIFIED PHYSICIANS DISORDERS GROUP OF MUSCLE R350 FREQUENCY 12-17-2016 [facility] OF PHYSICIANS MICTURITION GROUP R531 WEAKNESS 12-17-2016 [facility] PHYSICIANS GROUP N390 URINARY 12-11-2016 [facility] INFECTION INC SITE NOT SPECIFIED Z720 TOBACCO USE 12-11-2016 [facility] K047 PERIAPICAL 10-22-2016 [facility] WITHOUT INC SINUS H6690 OTITIS 04-26-2016 [facility] MEDIA PHYSICIAN UNSPECIFIED GROUP UNSPECIFIED EAR J069 ACUTE UPPER 04-26-2016 [facility] PHYSICIAN RESPIRATORY GROUP INFECTION UNSPECIFIED J0190 ACUTE 01-07-2016 [facility] SINUSITIS PHYSICIANS UNSPECIFIED GROUP L0591 PILONIDAL 10-15-2015 [facility] CYST PHYSICIANS WITHOUT GROUP ABSCESS H524 PRESBYOPIA 09-29-2015 LEONARD CELAYA J329 CHRONIC 08-19-2015 [facility] SINUSITIS PHYSICIANS UNSPECIFIED GROUP H9193 UNSPECIFIED 07-04-2015 [facility] HEARING PHYSICIANS LOSS GROUP BILATERAL 43768 ACUT 05-28-2015 [facility] SUPPRATV [facility] MEDIA W/O SPONT RUP EARDRUM 7234 BRACHIAL 04-16-2015 [facility] NEURITIS OR PHYSICIANS GROUP RADICULITIS NOS 33244 OTHER 04-16-2015 [facility] MALAISE AND PHYSICIANS FATIGUE GROUP 35697 ATTENTION 04-16-2015 [facility] OR PHYSICIANS CONCENTRATI GROUP ON DEFICIT 5990 URINARY 04-03-2015 [facility] TRACT PHYSICIANS INFECTION GROUP SITE NOT SPECIFIED 7840 HEADACHE 04-03-2015 SENG FRANCO 79519 HEADACHE 03-25-2015 [facility] ACTIVITY 7231 CERVICALGIA 03-01-2015 [facility] 64456 JAW PAIN 03-01-2015 [facility] 8472 LUMBAR 03-01-2015 [facility] PHYS[facility], STRAIN PLL 8509 UNSPECIFIED 03-01-2015 [facility] CONCUSSION PHYSICIANS, [facility] 920 CONTUSION 03-01-2015 [facility] OF FACE PHYSICIANS, [facility] NECK EXCEPT EYE 29823 INJURY OF 03-01-2015 [facility] OTHER IMAGING [facility] AND UNSPECIFIED 4610 ACUTE 01-20-2015 [facility] SINUSITIS HOSPITAL 462 ACUTE 12-17-2014 [facility] PHARYNGITIS [facility] 81841 UNS 10-15-2014 [facility] GASTRITIS&G ASTRODUODIT IS W/O MENTION HEMORR 4619 ACUTE 08-17-2014 [facility] SINUSITIS, UNSPECIFIED 3674 PRESBYOPIA 06-14-2014 SCIFRES ANG V032 NEED PROPH 05-23-2014 [facility] VACCINATION W/TUBERCULO SIS VACCINE V705 HEALTH 05-23-2014 [facility] [address] OBESITY, 05-01-2014 [facility] UNSPECIFIED 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 93986 UNSPECIFIED 03-25-2014 [facility] ZULEIKA ACUTE NONSUPPURAT MANDY OTITIS MEDIA 4779 ALLERGIC 03-25-2014 [facility] ZULEIKA RHINITIS CAUSE UNSPECIFIED 56255 OSTEOARTHRO 02-05-2014 [facility] S INVLV MX SITES BUT NOT SPEC GEN 3829 UNSPECIFIED 11-19-2013 [facility] OTITIS MEDIA 4660 ACUTE 11-19-2013 [facility] BRONCHITIS 3814 NONSUPPRATV 09-20-2013 [facility] VIC OTITIS MEDIA NOT SPEC ACUT/CHRON 470 DEVIATED 09-20-2013 [facility] NASAL SEPTUM 72825 UNSPECIFIED 09-11-2013 [facility] INFECTIVE OTITIS EXTERNA 17530 PEPTC ULCR 06-25-2013 [facility] UNS ACUT/CHRN W/O HEMOR PERF/OBST 77715 ABDOMINAL 06-25-2013 [facility] PAIN, GENERALIZED 789.00 789.00 06-07-2013 [facility] UNSPECIFIED SITE 19821 ABDOMINAL 06-07-2013 [facility] PAIN, [facility] UNSPECIFIED INC SITE 74126 ABDOMINAL 06-07-2013 [facility] PAIN, PERIUMBILIC V2651 TUBAL 06-07-2013 [facility] LIGATION RODRIGUEZ STERILIZATI ON STATUS V4579 OTHER 06-07-2013 [facility] ACQUIRED RODRIGUEZ ABSENCE OF ORGAN V7651 SPECIAL 05-17-2013 [facility] SCREENING SYLVESTER FOR MALIGNANT NEOPLASMS COLON 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 7242 LUMBAGO 01-19-2013 [facility] 7213 LUMBOSACRAL 12-07-2012 ABDIEL HAM [...] RELATED TO PHYSICIANS HIGH-RISK [facility]IOR 79471 PRADIP 04-17-2012 LAUREN MIGRAINE SHANNAN NEC W/O [...] LO 80 5- 1- 00 01 ve [place] 00 20 20 18 AI AM 90 [...] DOS Code Location Performer Comment CYTP C/V 99782 [facility] AUTO THIN [facility] ER JR LYR PREPJ SCR MNL RESCR PHYS IADNA 55905 [facility] NEISSERIA 7 [facility] ER JR GONORRHOE AE AMPLIFIED PROBE TQ IADNA 55630 [facility] CHLAMYDIA 7 LLC ER JR TRACHOMAT IS AMPLIFIED PROBE TQ MRI BRAIN 80249 [facility] BRAIN 7 MEDICAL STEM W/O IMAGING W/CONTRAS ASS T MATERIAL BLOOD 18100 [facility] VINC[facility] COUNT 7 [facility] COMPLETE INC INC AUTO&[place] [address] [facility] FREE 7 [facility] [place] [address] [facility] THYROID 7 [facility] STIMULATI INC INC NG HORMONE TSH COMPREHEN 89099 [facility] SIVE 7 [facility] METABOLIC INC INC PANEL ANTINUCLE 38358 [facility] AR 7 [facility] ANTIBODIE INC INC S BARRY CYANOCOBA 87631 [facility] VINECNT KEISHA 7 [facility] VITAMIN INC INC B-12 PROTEIN 76248 [facility] ELECTROPH 7 [facility] ORETIC INC INC FRACTJ&QU ANTJ SERUM SEDIMENTA 90157 [facility] TION RATE 7 [facility] RBC INC INC NON-AUTOM ATED CULTURE 90631 [facility] BACTERIAL 7 [facility] INC INC QUANTTATI VE COLONY COUNT URINE URNLS DIP 95223 [facility]INCENT 7 [facility] STICK/TAB INC INC LET RGNT AUTO W/O MICROSCOP Y THERAPEUT 79496 [facility] ROSALES IC 6 PHYSICIAN PROPHYLAC GROUP TIC/DX INJECTION SUBQ/IM INJECTION J0696 [facility] 6 PHYSICIAN CEFTRIAXO GROUP NE SODIUM PER 250 MG OPHTH 57958 [facility] 6 XM&EVAL COMPRHNSV ESTAB PT 1/> THERAPEUT 26062 [facility] PHYSICIAN SUKUMAR PROPHYLAC S GROUP TIC/DX INJECTION SUBQ/IM INJECTION J0696 [facility] 6 PHYSICIAN SUKUMAR CEFTRIAXO S GROUP NE SODIUM PER 250 MG INJECTION J1040 [facility] 6 PHYSICIAN SUKUMAR METHYLPRE S GROUP DNISOLONE ACETATE 80 MG INJECTION J1040 [facility] 5 PHYSICIAN SUKUMAR METHYLPRE S GROUP DNISOLONE ACETATE 80 MG INJECTION J0696 [facility] 5 PHYSICIAN SUKUMAR CEFTRIAXO S GROUP NE SODIUM PER 250 MG THERAPEUT 55049 [facility] IC 5 PHYSICIAN SUKUMAR PROPHYLAC S GROUP TIC/DX INJECTION SUBQ/IM THERAPEUT 02738 [facility] KAYE IC 5 [facility] TIC/DX INJECTION SUBQ/IM INJECTION J1100 [facility] KAYE 5 [facility] SONE [place] [address] [place] [address] S[facility] GALAN HEAD/BRAI 5 Haroldo FRANCO N W/O CONTRAST MATERIAL CULTURE 86870 [facility] BACTERIAL 5 [facility] INC INC QUANTTATI VE COLONY COUNT URINE LOCM Q9967 [facility] 300-399 5 [facility] MG/ML INC [place] [address] [facility] 5 MEDICAL RODRIGUEZ HY HEAD IMAGING W/CONTRAS ASS T/[place] [address] [facility] ALL MAXILLOFA 5 MEDICAL CIAL W/[place] [address] [facility] ALL HEAD/BRAI 5 MEDICAL N [place] [address] [facility] CERVICAL 5 MEDICAL SPINE W/O IMAGING CONTRAST ASS MATERIAL THERAPEUT 90898 [facility] RECINOS IC 5 [facility] TIC/DX INJECTION SUBQ/IM INJECTION J0696 [facility] KHANRON 5 [facility] NE SODIUM PER 250 MG INJECTION J1040 [facility] RCEINOS 5 [facility] DNISOLONE ACET[place] [address] [place] [address] [facility] HEAD/BRAI 5 [facility] N W/O INC INC CONTRAST MATERIAL COLLECTIO 42555 [facility] N VENOUS 5 [facility] [place] [address] [facility] FREE 5 [facility] THYROXINE INC INC 25 27628 [facility] HYDROXY 5 [facility] INCLUDES INC INC FRACTIONS IF PERFORMED COMPREHEN 50974 [facility] SIVE 5 [facility] [place] [address] [facility] THYROID 5 [facility] STIMULATI INC INC NG HORMONE TSH BLOOD 92095 [facility] COUNT 5 [facility] COMPLETE INC INC AUTO&AUTO DIFRNTL WBC OPHTH 40866 [facility] 4 ANG ANG XM&EVAL COMPRHNSV ESTAB PT 1/> SKIN TEST 21913 [facility] AGUILA 4 LEIA LEIA TUBERCULO SIS INTRADERM AL INJECTION J3420 [facility] AGUILA VIT B-12 4 [facility] LEIA CYANOCOBA KEISHA TO 1000 MCG INJECTION [...] LEIA CYANOCOBA KEISHA TO 1000 MCG ESOPHAGOG 63490 ERIK VALENCIA ASTRODUOD 3 SYLVESTER SYLVESTER ENOSCOPY TRANSORAL DIAGNOSTI C COLONOSCO 43394 ERIK VALENCIA PY FLX DX 3 SYLVESTER SYLVESTER W/COLLJ SPEC WHEN PFRMD RADEX ABD 02826 [facility] PASCALE COMPL 3 RODRIGUEZ RODRIGUEZ AQT ABD W/S/E/D VIEWS [address] [place] [address] [facility] INFUSION 3 [facility] THERAPY/P INC INC ROPHYLAXI S /DX 1ST TO 1 HR THERAPEUT 46366 [facility] IC 3 [facility] INJECTION [place] [address] [facility] INFUSION 3 [facility] THERAPY INC INC PROPHYLAX IS/DX EA HOUR URNLS DIP 81213 [facility] 3 [facility] STICK/TAB INC INC LET REAGENT AUTO MICROSCOP Y BLOOD 54885 [facility] COUNT 3 [facility] COMPLETE INC INC AUTO&[place] [address] [facility] LIPASE 3 [facility] INC INC COMPREHEN 26125 [facility] SIVE 3 [facility] [place] [address] [facility] AMYLASE 3 [facility] INC INC INJECTION J3420 [facility] AGUILA VIT B-12 3 LEIA LEIA CYANOCOBA KEISHA TO 1000 MCG RADEX 61367 [facility] SPINE 3 [facility] MEM [...] LEIA CYANOCOBA KEISHA TO 1000 MCG RADEX 06426 PRUITT TRA PRUITT TRA SPINE 2 LUMBOSACR AL 2/3 VIEWS INJECTION J3420 [facility] AGUILA VIT B-12 2 LEIA LEIA CYANOCOBA KEISHA TO 1000 MCG INJECTION J0696 [facility] AGUILA 2 LEIA LEIA CEFTRIAXO NE SODIUM PER 250 MG ANES 13108 [facility] HYSTEROSC 2 ANESTH ISI OPY&/HYST OF THE EROSALPIN BLUE GOGRAPHY W/BX HYSTEROSC 59361 FLASH VIDALES OPY 2 PATRIA PATRIA ENDOMETRI AL ABLATION BLOOD 41234 [facility] COUNT 2 [facility] COMPLETE INC INC AUTO&AUTO DIFRNTL WBC BASIC 27035 [facility] METABOLIC 2 [facility] PANEL INC INC CALCIUM TOTAL URNLS DIP 67896 FLASH VIDALES 2 PATRIA PATRIA STICK/TAB LET RGNT NON-AUTO W/O MICRSCP INJ A9577 [facility] GADOBENAT 2 [facility] E INC [place] [address] FLASH VDIALES TRANSVAGI 2 PATRIA PATRIA NAL BLOOD 01097 [facility] COUNT 2 [facility] COMPLETE INC INC AUTO&AUTO DIFRNTL WBC MRI BRAIN 94294 [facility] BRAIN 2 [facility] STEM W/O INC INC W/CONTRAS T MATERIAL ENDOMETRI 53345 FLASH VIDALES AL BX 2 PATRIA PATRIA W/WO ENDOCERVI X BX W/O DILAT SPX CUL BACT 30044 COMBINED COMBINED XCPT 2 PHYSICIAN PHYSICIAN URINE S LA S LA BLOOD/STO OL AEROBIC ISOL ANTIBODY 01407 COMBINED COMBINED CHLAMYDIA 2 PHYSICIAN PHYSICIAN S LA S LA PERCUTANE 27450 LAUREN LAUREN OUS TESTS 2 SHANNAN SHANNAN W/ALLERGE MONICA EXTRACTS INTRACUTA 09148 LAUREN LAUREN NEOUS 2 SHANNAN SHANNAN TESTS W/ALLERGE MONICA EXTRACTS OPHTH 44030 SCIFRES SCIFRES MEDICAL 2 ANG ANG XM&EVAL COMPRE NEW PT 1/> VST DETERMINA 75915 SCIFRES SCIFRES TION 2 ANG ANG REFRACTIV E STATE Encounters Encounter Start End Date Code Location Performer Type Date INITIAL 13113 [facility] PREVENTIV 7 7 PHYSICIAN E S GROUP MEDICINE NEW PATIENT 40-64YRS OFFICE 99004 [facility] PAVEZ OUTPATIEN 7 7 PHYSICIAN T NEW 45 S GROUP MINUTES OFFICE 64961 [facility] FRYMAN OUTPATIEN 7 7 PHYSICIAN T VISIT S GROUP 15 MINUTES EMERGENCY 26248 [facility] 7 7 [facility] DEPARTMEN INC T VISIT LOW/MODER SEVERITY [facility] OUTPATIEN INC T EMERGENCY 21742 [facility] SCHUSTER 7 7 PHYSICIAN DEPARTMEN S, PLLC T VISIT MODERATE SEVERITY OFFICE 33659 [facility] OUTPATIEN 7 7 PHYSICIAN T VISIT S GROUP 25 MINUTES [facility]OSP[facility] T [facility] OUTPATIEN INC T OFFICE 60771 [facility] 7 7 [facility] T VISIT 5 INC MINUTES OFFICE 96355 [facility] OUTPATIEN 7 7 [facility] T VISIT 5 INC MINUTES [facility] 7 [facility] OUTPATIEN INC T OFFICE 17506 [facility] ROSALES OUTPATIEN 6 6 PHYSICIAN T VISIT GROUP 15 MINUTES OFFICE 52472 [facility] JORJE OUTPATIEN 6 6 PHYSICIAN SUKUMAR T VISIT S GROUP 15 MINUTES OFFICE 05160 [facility] WISE TER OUTPATIEN 6 6 PHYSICIAN T VISIT S GROUP 15 MINUTES OFFICE 54772 [facility] JORJE OUTPATIEN 6 6 PHYSICIAN SUKUMAR T VISIT S GROUP 15 MINUTES OFFICE 93494 [facility] LEIF OUTPATIEN 5 5 PHYSICIAN SUKUMAR T VISIT S GROUP 10 MINUTES OFFICE 62780 [facility] ROJASADDIS OUTPATIEN 5 5 [facility] 15 MINUTES OFFICE 42500 [facility] MONGIARDO OUTPATIEN 5 5 PHYSICIAN FRA T NEW 30 S GROUP MINUTES OFFICE 46744 [facility] KHANRON OUTPATIEN 5 5 [facility] 10 MINUTES OFFICE 07606 [facility] OUTPATIEN 5 5 PHYSICIAN T VISIT S GROUP 15 MINUTES OFFICE 01937 [facility] OUTPATIEN 5 5 PHYSICIAN T VISIT S GROUP 15 MINUTES [facility] 5 [facility] OUTPATIEN INC T [facility] 5 5 [facility] OUTPATIEN INC T OFFICE 87345 [facility] LEIF OUTPATIEN 5 5 PHYSICIAN SUKUMAR T VISIT S GROUP 15 MINUTES EMERGENCY 93900 [facility] YADAV 5 5 PHYSICIAN SUKUMAR DEPARTMEN S, PLLC T VISIT HIGH/URGE NT SEVERITY OFFICE 95321 [facility] JORJE OUTPATIEN 5 5 [facility] 15 MINUTES OFFICE 88569 [facility] VARGAS OUTPATIEN 5 5 PHYSICIAN EUG T VISIT S GROUP 15 MINUTES OFFICE 24485 [facility] LEIF OUTPATIEN 5 5 PHYSICIAN SUKUMAR T VISIT S GROUP 15 MINUTES [facility]OSP[facility] 5 [facility] OUTPATIEN INC [facility] CAL[facility]ON - 5 5 [facility] OUTPATIEN INC T OFFICE 35757 [facility] OUTPATIEN 5 5 PHYSICIAN T VISIT S GROUP 10 MINUTES OFFICE 06866 [facility] RECINOS OUTPATIEN [address] MINUTES OFFICE 73875 [facility] LAWSONEN 5 5 LEIA LEIA T VISIT 15 MINUTES OFFICE 78867 [facility] STORM 4 4 LEIA LEIA T VISIT 15 MINUTES OFFICE 60982 [facility] STORM 4 4 LEIA LEIA T VISIT 15 MINUTES OFFICE 15401 [facility] STORM 4 4 LEIA LEIA T VISIT 15 MINUTES OFFICE 65725 [facility] STORM 4 4 LEIA LEIA T VISIT 15 MINUTES OFFICE 55286 JONNA STORM 4 4 ZULEIKA ZULEIKA T VISIT 25 MINUTES OFFICE 78772 [facility] STORM 4 4 LEIA LEIA T VISIT 15 MINUTES OFFICE 04427 [facility] STORM 4 4 LEIA LEIA T VISIT 15 MINUTES OFFICE 64146 [facility] STORM 4 4 LEIA LEIA T VISIT 15 MINUTES OFFICE 89327 [facility] STORM 4 4 LEIA LEIA T VISIT 15 MINUTES OFFICE 02930 [facility] OUTPATIEN 4 4 ZULEIKA ZULEIKA T NEW 30 MINUTES OFFICE 05568 [facility]A EMETERIO 4 4 LEIA LEIA T VISIT 15 MINUTES OFFICE 12030 [facility] AG[facility]A RENNYEN 4 4 LEIA LEIA T VISIT 15 MINUTES OFFICE 02801 [facility] ANDERSONVIDAEN 3 3 LEIA LEIA T VISIT 15 MINUTES OFFICE 11453 [facility] ANDERSONVIDAEN 3 3 LEIA LEIA T VISIT 15 MINUTES OFFICE 51309 [facility] ANDERSONVIDAEN 3 3 LEIA LEIA T VISIT 15 MINUTES OFFICE 49895 [facility] ANDERSONVIDAEN 3 3 LEIA LEIA T VISIT 15 MINUTES [facility]OSPITAL [facility] 3 [facility] OUTPATIEN INC T Emergency TRENA [facility] LUNSFORD (ER) 3 19:39 3 21:28 [facility] - 3 3 [facility] OUTPATIEN INC T EMERGENCY 57992 [facility] 3 3 [facility] T VISIT HIGH/URGE NT SEVERITY OFFICE 30859 [facility] ALLIENASIM RENNYEN 3 3 LEIA LEIA T VISIT 15 MINUTES OFFICE 58369 ERIK VALENCIA CONSULTAT 3 3 SYLVESTER SYLVESTER ION NEW/ESTAB PATIENT 60 MIN OFFICE 58143 ALLIENASIM [facility] STORM 3 3 LEIA LEIA T VISIT 15 MINUTES OFFICE 73556 ALLIENASIM [facility] OUTVIDAEN 3 3 LEIA LEIA T VISIT 15 MINUTES OFFICE 87112 ALLIENASIM [facility] STORM 3 3 LEIA LEIA T VISIT 15 MINUTES [facility]OSPITAL [facility] 3 [facility] OUTPATIEN INC T OFFICE 72757 ALLIENASIM [facility] STORM 3 3 LEIA LEIA T VISIT 15 MINUTES OFFICE 20063 ABDIEL MILLER OUTPATIEN 3 3 T NEW 45 MINUTES OFFICE 04397 [facility] AGUILA OUTPATIEN 3 3 LEIA LEIA T VISIT 15 MINUTES OFFICE 44956 [facility] AGUILA OUTPATIEN 3 3 LEIA LEIA T VISIT 15 MINUTES OFFICE 47349 [facility] AGUILA OUTPATIEN 3 3 LEIA LEIA T VISIT 15 MINUTES OFFICE 84980 [facility] AGUILA OUTPATIEN 2 2 LEIA LEIA T VISIT 15 MINUTES OFFICE 62045 PRUITT TRA PRUITT TRA CONSULTAT 2 2 ION NEW/ESTAB PATIENT 60 MIN OFFICE 55495 [facility] AGUILA OUTPATIEN 2 2 LEIA LEIA T VISIT 15 MINUTES OFFICE 09327 JON ALVARENGA OUTPATIEN 2 2 T VISIT 25 MINUTES OFFICE 28238 [facility] AGUILA OUTPATIEN 2 2 LEIA LEIA T VISIT 15 MINUTES OFFICE 73951 [facility] AGUILA OUTPATIEN 2 2 LEIA LEIA T VISIT 15 MINUTES [facility]OSPITAL [facility] 2 2 [facility] OUTPATIEN INC T PERIODIC 65595 FLASH VIDALES PREVENTIV 2 2 PATRIA PATRIA E MED EST PATIENT 18-39 YRS [facility]PITAL [facility] - 2 2 [facility] OUTPATIEN INC T OFFICE 42394 JON ALVARENGA CONSULTAT 2 2 ION NEW/ESTAB PATIENT 60 MIN OFFICE 80367 FLASH VIDALES OUTPATIEN 2 2 PATRIA PATRIA T NEW 45 MINUTES OFFICE 98559 LAUREN LAUREN CONSULTAT 2 2 SHANNAN SHANNAN ION NEW/ESTAB PATIENT 60 MIN
[2017-04-02 16:24] VITALS: BP 156/88
--- OUTSIDE RECORDS SUMMARY | 2017-04-02 16:24 | External Medical Summary Rpt ---
Author Author , LUIS Organization [employer] Address Unknown Phone [email or web address] Providers Care Biology Lecturer Name Role Phone ARNOLD LEIA, ARNOLD Unavailable Unavailable LEIA ARNOLD LEIA, ARNOLD Unavailable Unavailable LEIA GABRIEL BRO, GABRIEL Unavailable Unavailable BRO [facility] [...] [facility] Unavailable Unavailable [facility], [facility] VALLE YOMI, VALLE YOMI Unavailable Unavailable VALLE YOMI, VALLE YOMI Unavailable Unavailable [facility], Unavailable Unavailable [facility], Unavailable Unavailable [facility] PRUITT TRA, PRUITT TRA Unavailable Unavailable [facility] COYLE ZULEIKA, COYLE Unavailable Unavailable ZULEIKA CYOLE ZULEIKA, COYLE Unavailable Unavailable [facility] ABDIEL HAM, ABDIEL HAM Unavailable Unavailable ABDIEL HAM, ABDIEL HAM Unavailable Unavailable LAUREN SHANNAN, Unavailable Unavailable LAUREN SHANNAN LAUREN SHANNAN, Unavailable Unavailable LAUREN SHANNAN MONGIARDO FRA, Unavailable Unavailable MONGIARDO FRA WEBB LYLE, WEBB LYLE Unavailable Unavailable [facility] Un[facility]available [facility], [facility] PAVEZ, PAVEZ Unavailable Unavailable PICKLESIMER JR, Unavailable Unavailable PICKLESIMER JR SADEK, SADEK Unavailable Unavailable [facility] SYLVE[facility], Unavailable Unavailable [facility] SYLVESTER [facility] SYLVESTER, Unavailable Unavailable [facility] SYLVESTER SCIFRES ANG, SCIFRES Unavailable Unavailable ANG SCIFRES ANG, SCIFRES Unavailable Unavailable ANDRE SNOWDEN, YOGI Unavailable Unavailable ISI FRNACO, Unavailable Unavailable JOAN JACKMAN Unavailable Unavailable Purpose Continuity of Care Document - 04-13-2012 through 2016 Problems Code Diagnosis DOS Provider Status [id number] ENCOUNTER 02-17-2017 [facility] GENERAL RTN W/O ABNORMAL FIND Z113 ENCOUNTER 02-17-2017 [facility] INFECTIONS SEXL MODE TRANSMISSN R413 OTHER 02-03-2017 [facility] R51 HEADACHE 02-03-2017 [facility] R5383 OTHER 02-03-2017 [facility] [id number] ATTENTION 01-24-2017 [facility] CONCENTRATI GROUP ON DEFICIT K5900 CONSTIPATIO 01-14-2017 [facility] N PHYSICIANS UNSPECIFIED GROUP K649 UNSPECIFIED 01-14-2017 [facility] HEMORRHOIDS GROUP K644 RESIDUAL 01-12-2017 [facility], L SKIN TAGS PLLC L089 LOCAL INF 12-17-2016 [facility] THE SKIN & PHYSICIANS SUBCUTANEOU GROUP S TISSUE UNS L729 FOLLICULAR 12-17-2016 [facility] CYST THE PHYSICIANS SKIN & SUBQ GROUP TISSUE UNS M6289 OTHER 12-17-2016 [facility] SPECIFIED PHYSICIANS DISORDERS GROUP OF MUSCLE R350 FREQUENCY 12-17-2016 [facility] OF PHYSICIANS MICTURITION GROUP R531 WEAKNESS 12-17-2016 [facility] N390 URINARY 12-11-2016 [facility] INFECTION INC SITE NOT SPECIFIED Z720 TOBACCO USE 12-11-2016 [facility] INC K047 PERIAPICAL 10-22-2016 [facility] ABSCESS [facility] WITHOUT INC SINUS H6690 OTITIS 04-26-2016 [facility] MEDIA PHYSICIAN UNSPECIFIED GROUP UNSPECIFIED EAR J069 ACUTE UPPER 04-26-2016 [facility] PHYSICIAN RESPIRATORY GROUP INFECTION UNSPECIFIED J0190 ACUTE 01-07-2016 [facility] SINUSITIS PHYSICIANS UNSPECIFIED GROUP L0591 PILONIDAL 10-15-2015 [facility] CYST PHYSICIANS WITHOUT GROUP ABSCESS H524 PRESBYOPIA 09-29-2015 VALLE YOMI J329 CHRONIC 08-19-2015 [facility] SINUSITIS PHYSICIANS UNSPECIFIED GROUP H9193 UNSPECIFIED 07-04-2015 [facility] HEARING PHYSICIANS LOSS GROUP BILATERAL 86685 ACUT 05-28-2015 [facility] MEDIA W/O SPONT RUP EARDRUM 7234 BRACHIAL 04-16-2015 [facility] NEURITIS OR PHYSICIANS GROUP RADICULITIS NOS 35353 OTHER 04-16-2015 [facility] MALAISE AND PHYSICIANS FATIGUE GROUP 23471 ATTENTION 04-16-2015 [facility] OR PHYSICIANS CONCENTRATI GROUP ON DEFICIT 5990 URINARY 04-03-2015 [facility] TRACT PHYSICIANS INFECTION GROUP SITE NOT SPECIFIED 7840 HEADACHE 04-03-2015 SENG FRANCO 12121 HEADACHE 03-25-2015 [facility]UAL [facility] ACTIVITY 7231 CERVICALGIA 03-01-2015 [facility] 33755 JAW PAIN 03-01-2015 [facility] 8472 LUMBAR 03-01-2015 [facility], STRAIN PLL 8509 UNSPECIFIED 03-01-2015 [facility] CONCUSSION [facility], [facility] 920 CONTUSION 03-01-2015 [facility] OF FACE PHYSICIANS, SCALP AND [facility] NECK EXCEPT EYE 83006 INJURY OF 03-01-2015 [facility] OTHER IMAGING ASS AND UNSPECIFIED 4610 ACUTE 01-20-2015 [facility] 462 ACUTE 12-17-2014 [facility] 78396 UNS 10-15-2014 [facility] GASTRITIS&G ASTRODUODIT IS W/O MENTION HEMORR 4619 ACUTE 08-17-2014 [facility] SINUSITIS, UNSPECIFIED 3674 PRESBYOPIA 06-14-2014 SCIFRES ANG V032 NEED PROPH 05-23-2014 [facility] VACCINATION W/TUBERCULO SIS VACCINE V705 HEALTH 05-23-2014 [facility] [place] [address] OBESITY, 05-01-2014 [facility] UNSPECIFIED 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 16945 UNSPECIFIED 03-25-2014 [facility] ZULEIK[facility] ACUTE NONSUPPURAT MANDY OTITIS MEDIA 4779 ALLERGIC 03-25-2014 [facility] ZULE[facility] RHINITIS CAUSE UNSPECIFIED 90334 OSTEOARTHRO 02-05-2014 [facility] S INVLV MX SITES BUT NOT SPEC GEN 3829 UNSPECIFIED 11-19-2013 [facility] OTITIS MEDIA 4660 ACUTE 11-19-2013 [facility] BRONCHITIS 3814 NONSUPPRATV 09-20-2013 [facility] ZULEIKA OTITIS MEDIA NOT SPEC ACUT/CHRON 470 DEVIATED 09-20-2013 [facility] ZULEIKA NASAL SEPTUM 06820 UNSPECIFIED 09-11-2013 [facility] INFECTIVE OTITIS EXTERNA 23727 PEPTC ULCR 06-25-2013 [facility] UNS ACUT/CHRN W/O HEMOR PERF/OBST 03796 ABDOMINAL 06-25-2013 [facility] PAIN, GENERALIZED 95848 ABDOMINAL 06-07-2013 [facility] UNSPECIFIED INC SITE 69792 ABDOMINAL 06-07-2013 GABRIEL BRO PAIN, PERIUMBILIC V2651 TUBAL 06-07-2013 [facility]IG[facility] RODRIGUEZ STERILIZATI ON STATUS V4579 OTHER 06-07-2013 [facility] ACQUIRED RODRIGUEZ ABSENCE OF ORGAN V7651 SPECIAL 05-17-2013 [facility] SCREENING SYLVESTER FOR MALIGNANT NEOPLASMS COLON 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 7242 LUMBAGO 01-19-2013 [facility] 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 7245 UNSPECIFIED 11-24-2012 [facility] BACKACHE 7243 SCIATICA 10-27-2012 [facility] 4871 INFLUENZA 10-12-2012 [facility] WITH OTHER RESPIRATORY MANIFESTATI ONS 6961 OTHER 08-08-2012 [facility] PSORIASIS AND SIMILAR DISORDERS 6262 EXCESSIVE 05-12-2012 [facility] PATRIA OR FREQUENT MENSTRUATIO N 6268 OTH D/O 05-12-2012 [facility] MENSTRUATIO ANESTH OF N&OTH ABN THE BLUE BLEED FE GNT TRACT V7231 ROUTINE 05-10-2012 [facility] PATRIA GYNECOLOGIC AL EXAMINATION 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 3688 OTHER 05-03-2012 [facility] SPECIFIED [facility] VISUAL IMAGING ASS DISTURBANCE S 6170 ENDOMETRIOS 05-03-2012 [facility]ES PATRIA IS OF UTERUS 6212 HYPERTROPHY 05-03-2012 [facility] PATRIA OF UTERUS 7804 DIZZINESS 05-03-2012 [facility] GIDDINESS [facility]ING ASS V692 PROBLEMS 04-19-2012 [facility] RELATED TO PHYSICIANS HIGH-RISK LA SEXUAL BEHAVIOR 50491 PRADIP 04-17-2012 LAUREN MIGRAINE SHANNAN NEC W/O INTRACT W/O STAT MIGRNOSUS 4770 ALLERGIC 04-17-2012 LAUREN RHINITIS SHANNAN DUE TO POLLEN 4772 ALLERGIC 04-17-2012 LAUREN RHINITIS SHANNAN DUE TO ANIMAL HAIR AND DANDER 4778 ALLERGIC 04-17-2012 LAUREN RHINITIS SHANNAN DUE TO OTHER ALLERGEN V727 DIAGNOSTIC 04-17-2012 LAUREN SKIN AND SHANNAN SENSITIZATI ON TESTS V720 EXAMINATION 04-13-2012 SCIFRES ANG OF EYES AND VISION Medications Na ND Rx Da Fi Fi [...] LO 80 5- 1- 00 01 ve MI 00 20 20 18 AI AM 90 [...] MG #3 93 TA 8 BL ET Procedures Procedure DOS Code Location Performer Comment IADNA 93871 [facility] NEISS[facility] ER JR GONORRHOE AE AMPLIFIED PROBE TQ IADNA 73852 [facility] CHLAMYDIA 7 LLC ER JR TRACHOMAT IS AMPLIFIED PROBE TQ CYTP C/V 18789 [facility] AUTO THIN 7 LLC ER JR LYR PREPJ SCR MNL RESCR PHYS MRI BRAIN 74843 [facility] LAYNE BRAIN 7 MEDICAL STEM W/O IMAGING W/CONTRAS ASS T MATERIAL ANTINUCLE 02821 [facility] AR [facility] [place] [address] [facility] FREE 7 [facility] [place] [address] [facility] THYROID 7 [facility] STIMULATI INC INC NG HORMONE TSH COMPREHEN 75518 [facility] SIVE [facility] METABOLIC INC INC PANEL PROTEIN 82441 [facility] ELECTROPH 7 [facility] ORETIC INC INC FRACTJ&QU ANTJ SERUM SEDIMENTA 67900 [facility] TIMAC RATE 7 [facility] RBC INC INC NON-AUTOM ATED CYANOCOBA 82696 [facility] KEISHA 7 [facility] VITAMIN INC INC B-12 BLOOD 90452 [facility] COUNT 7 [facility] COMPLETE INC INC AUTO&AUTO DIFRNTL WBC URNLS DIP 93579 [facility] STICK/TAB INC INC LET RGNT AUTO W/O MICROSCOP Y CULTURE 07984 [facility] BACTERIAL 7 [facility] INC INC QUANTTATI VE COLONY COUNT URINE THERAPEUT 29771 [facility] IC 6 PHYSICIAN PROPHYLAC GROUP TIC/DX INJECTION SUBQ/IM INJECTION J0696 [facility] 6 PHYSICIAN CEFTRIAXO GROUP NE SODIUM PER 250 MG OPH 68507 [facility] 6 XM&EVAL COMPRHNSV ESTAB PT 1/> THERAPEUT [address] [facility] IC 6 PHYSICIAN SUKUMAR PROPHYLAC S GROUP TIC/DX INJECTION SUBQ/IM INJECTION J10[address] [facility] 6 PHYSICIAN SUKUMAR METHYLPRE S GROUP DNISOLONE ACETATE 80 [address] INJECTION [address] [facility] 6 PHYSICIAN SUKUMAR CEFTRIAXO S GROUP NE SODIUM PER 250 MG INJECTION J0696 [facility] 5 PHYSICIAN SUKUMAR CEFTRIAXO S GROUP NE SODIUM PER 250 MG INJECTION J1040 [facility] 5 PHYSICIAN SUKUMAR METHYLPRE S GROUP DNISOLONE ACETATE 80 MG THERAPEUT 49331 [facility] 5 PHYSICIAN SUKUMAR PROPHYLAC S GROUP TIC/DX INJECTION SUBQ/IM THERAPEUT 91467 [facility] REDDYAN IC 5 [facility] TIC/DX INJECTION SUBQ/IM INJECTION J1100 [facility] KAYE 5 [facility] SONE SODIUM PHOSPHATE 1 MG CULTURE 06155 [facility] BACTERIAL 5 [facility] INC [place] [address] SENG GALAN HEAD/BRAI 5 S. JOAN N W/O CONTRAST MATERIAL LOCM Q9967 [facility] 300-399 5 [facility] MG/ML INC [place] [address] [facility] BISHOPPASCALE ANGIOGRAP 5 MEDICAL RODRIGUEZ HY HEAD IMAGING W/CONTRAS ASS T/[place] [address] [facility] LAYNE ALL MAXILLOFA 5 MEDICAL CIAL W/[place] [address] [facility] LAYNE ALL CERVICAL 5 MEDICAL SPINE W/[place] [address] [facility] LAYNE ALL HEAD/BRAI 5 MEDICAL N W/O IMAGING CONTRAST ASS MATERIAL THERAPEUT 67017 [facility] RECINOS IC 5 [facility] TIC/DX INJECTION SUBQ/IM INJECTION J1040 [facility] JORJE 5 [facility] DNISOLONE ACETATE 80 MG INJECTION J0696 [facility] KHANRON 5 [facility] [place] [address] [place] [address] JAZMIN FRANCO ADAMA HEAD/BRAI 5 MEDICAL N W/O IMAGING CONTRAST ASS MATERIAL COLLECTIO 54684 [facility] N VENOUS 5 [facility] BLOOD [place] [address] [facility] FREE [facility] [place] [address] [facility] THYROID 5 [facility] STIMULATI INC INC NG HORMONE TSH COMPREHEN 07024 [facility] SIVE 5 [facility] METABOLIC INC INC PANEL 25 30445 [facility] HYDROXY 5 [facility] INCLUDES INC INC FRACTIONS IF PERFORMED BLOOD 09801 [facility] COUNT 5 [facility] COMPLETE INC INC AUTO&AUTO DIFRNTL WBC OPHTH 21960 [employer] MEDICAL 4 ANG ANG XM&EVAL COMPRHNSV ESTAB PT 1/> SKIN TEST 77093 [facility] AGU[facility] 4 LEIA LEIA TUBERCULO SIS INTRADERM AL INJECTION J3420 [facility] VIT B-12 4 LEIA LEIA CYANOCOBA KEISHA TO 1000 MCG INJECTION J3420 [facility] VIT B-12 4 [facility] LEIA CYANOCOBA KEISHA TO 1000 MCG INJ J0702 [facility] BETAMETHA 4 LEIA LEIA SONE ACETATE & PHOSPHATE 3 MG INJECTION J3420 [facility] VIT B-12 4 LEIA LEIA CYANOCOBA KEISHA TO 1000 MCG INJECTION J3420 [facility] VIT B-12 4 LEIA LEIA CYANOCOBA KEISHA TO 1000 MCG INJECTION J0696 [facility] AG[facility] 4 LEIA LEIA CEFTRIAXO NE SODIUM PER 250 MG INJECTION J3420 [facility] VIT B-12 4 LEIA LEIA CYANOCOBA KEISHA TO 1000 MCG INJ J0702 [facility] BETAMETHA 4 LEIA LEIA SONE ACETATE & PHOSPHATE 3 MG INJECTION J3420 [facility] AGU[facility]A VIT B-12 3 LEIA LEIA CYANOCOBA KEISHA TO 1000 MCG ESOPHAGOG 22898 [facility] ASTRODUOD 3 [facility] ENOSCOPY INC INC TRANSORAL DIAGNOSTI C COLONOSCO 24974 ERIK VALENCIA PY FLX DX 3 SYLVESTER SYLVESTER W/COLLJ SPEC WHEN PFRMD RADEX ABD 60015 [facility] COMPL 3 [facility] AQT ABD INC INC W/S/E/D VIEWS [address] [place] [address] [facility] INFUSION 3 [facility] THERAPY INC INC PROPHYLAX IS/DX EA HOUR COMPREHEN 22808 [facility] SIVE 3 [facility] [place] [address] [facility] AMYLASE 3 [place] [address] [facility] LIPASE 3 [facility] INC INC BLOOD 63932 [facility] COUNT 3 [facility] COMPLETE INC INC AUTO&[place] [address] [facility] INFUSION 3 [facility] THERAPY/P INC INC ROPHYLAXI S /DX 1ST TO 1 HR THERAPEUT 61762 [facility] IC 3 [facility] INJECTION INC INC IV PUSH EACH NEW DRUG URNLS DIP 26320 [facility] 3 [facility] STICK/TAB INC INC LET REAGENT AUTO MICROSCOP Y INJECTION J3420 [facility] AGU[facility]A VIT B-12 3 LEIA LEIA CYANOCOBA KEISHA TO 1000 MCG RADEX 80934 P[facility] PASCALE SPINE 3 RODRIGUEZ RODRIGUEZ LUMBOSACR AL MINIMUM 4 VIEWS INJECTION J3420 [facility] KELLEYOLD VIT B-12 3 LEIA LEIA CYANOCOBA KEISHA TO 1000 MCG INJECTION J0696 [facility] KELLEYOLD 3 LEIA LEIA CEFTRIAXO NE SODIUM PER 250 MG DRUG SCR G0434 ABDIEL HAM ABDIEL HAM NOT 3 CHROMATOG RAPHIC; ANY NUMBER PT ENC INJECTION J3420 [facility] VIT B-12 3 LEIA LEIA CYANOCOBA KEISHA TO 1000 MCG INJ J0702 [facility] BETAMETHA 3 LEIA LEIA SONE ACETATE & PHOSPHATE 3 MG INJECTION J3420 [facility] ARNOLD VIT B-12 3 LEIA LEIA CYANOCOBA KEISHA TO 1000 MCG INJECTION J3420 [facility] KELLEYOLD VIT B-12 2 LEIA LEIA CYANOCOBA KEISHA TO 1000 MCG RADEX 11509 PRUITT TRA PRUITT TRA SPINE 2 LUMBOSACR AL 2/3 VIEWS INJECTION J3420 [facility] KELLEYOLD VIT B-12 2 LEIA LEIA CYANOCOBA KEISHA TO 1000 MCG INJECTION J0696 [facility] KELLEYOLD 2 LEIA LEIA CEFTRIAXO NE SODIUM PER 250 MG HYSTEROSC 67986 FLASH VIDALES OPY 2 PATRIA PATRIA ENDOMETRI AL ABLATION ANES 09455 [facility] HYSTEROSC 2 ANESTH ISI OPY&/HYST OF THE EROSALPIN BLUE GOGRAPHY W/BX BASIC 27255 [facility] METABOLIC 2 [facility] PANEL INC INC CALCIUM TOTAL BLOOD 22794 [facility] COUNT 2 [facility] COMPLETE INC INC AUTO&AUTO DIFRNTL WBC URNLS DIP 57091 FLASH VIDALES 2 PATRIA PATRIA STICK/TAB LET RGNT NON-AUTO W/O MICRSCP MRI BRAIN 73582 JAZMIN PASCALE BRAIN 2 MEDICAL RODRIGUEZ STEM W/[place] [address] FLASH VIDALES TRANSVAGI 2 PATRIA PATRIA NAL INJ A9577 [facility] GADOBENAT 2 [facility] E INC INC DIMEGLUMI NE MULTIHANC E PER ML BLOOD 25936 [facility] COUNT 2 [facility] COMPLETE INC INC AUTO&AUTO DIFRNTL WBC ENDOMETRI 40431 FLASH VIDALES AL BX 2 PATRIA PATRIA W/WO ENDOCERVI X BX W/O DILAT SPX CUL BACT 20443 COM[facility] COMBINED XCPT 2 PHYSICIAN PHYSICIAN URINE S LA S LA BLOOD/STO OL AEROBIC ISOL ANTIBODY 20697 COMBINED COMBINED CHLAMYDIA 2 PHYSICIAN PHYSICIAN S LA S LA PERCUTANE 19809 LAUREN LAUREN OUS TESTS 2 SHANNAN SHANNAN W/ALLERGE MONICA EXTRACTS INTRACUTA 62951 LAUREN LAUREN NEOUS 2 SHANNAN SHANNAN TESTS W/ALLERGE MONICA EXTRACTS DETERMINA 31020 SCIFRES SCIFRES TION 2 ANG ANG REFRACTIV E STATE OPHTH 79661 SCIFRES SCIFRES MEDICAL 2 ANG ANG XM&EVAL COMPRE NEW PT 1/> VST Encounters Encounter Start End Date Code Location Performer Type Date INITIAL 15536 [facility] PREVENTIV 7 7 PHYSICIAN E S GROUP MEDICINE NEW PATIENT 40-64YRS OFFICE 53719 [facility] PAVEZ OUTPATIEN 7 7 PHYSICIAN T NEW 45 S GROUP MINUTES OFFICE 96197 [facility] FRYMAN OUTPATIEN 7 7 PHYSICIAN T VISIT S GROUP 15 MINUTES EMERGENCY 95510 [facility] SCHUSTER 7 7 PHYSICIAN DEPARTMEN S, PLLC T VISIT MODERATE SEVERITY EMERGENCY 27287 [facility] 7 7 [facility] DEPARTMEN INC T VISIT LOW/MODER SEVERITY [facility] OUTPATIEN INC T OFFICE 13123 [facility] OUTPATIEN 7 7 PHYSICIAN T VISIT S GROUP 25 MINUTES [facility]OSPITAL [facility] OUTPATIEN INC T OFFICE 00003 [facility] 7 7 [facility] T VISIT 5 INC MINUTES [facility] 7 [facility] OUTPATIEN INC T [facility] 7 [facility] OUTPATIEN INC T OFFICE 12015 [facility] 7 7 [facility] T VISIT 5 INC MINUTES OFFICE 53740 [facility] ROSALES OUTPATIEN 6 6 PHYSICIAN T VISIT GROUP 15 MINUTES OFFICE 09135 [facility] JORJE OUTPATIEN 6 6 PHYSICIAN SUKUMAR T VISIT S GROUP 15 MINUTES OFFICE [address] [facility] [address] OUTPATIEN 6 6 PHYSICIAN T VISIT S GROUP 15 MINUTES OFFICE 45479 [facility] JORJE OUTPATIEN 6 6 PHYSICIAN SUKUMAR T VISIT S GROUP 15 MINUTES OFFICE 04153 [facility] LEIF OUTPATIEN 5 5 PHYSICIAN SUKUMAR T VISIT S GROUP 10 MINUTES OFFICE 85540 [facility] ROJASADDIS OUTPATIEN 5 5 [facility] 15 MINUTES OFFICE 38713 [facility] MONGIARDO OUTPATIEN 5 5 PHYSICIAN FRA T NEW 30 S GROUP MINUTES OFFICE 81877 [facility] JORJE OUTPATIEN 5 5 [facility] 10 MINUTES OFFICE 12360 [facility] OUTPATIEN 5 5 PHYSICIAN T VISIT S GROUP 15 MINUTES OFFICE 43091 [facility] OUTPATIEN 5 5 PHYSICIAN T VISIT S GROUP 15 MINUTES [facility] 5 [facility] T [facility] 5 5 [facility] OUTPATIEN INC T OFFICE 49162 [facility] LEIF OUTPATIEN 5 5 PHYSICIAN SUKUMAR T VISIT S GROUP 15 MINUTES EMERGENCY 58989 [facility] YADAV 5 5 PHYSICIAN SUKUMAR DEPARTMEN S, PLLC T VISIT HIGH/URGE NT SEVERITY OFFICE 75948 [facility] JORJE OUTPATIEN 5 5 [facility] VISIT HOSPITAL 15 MINUTES OFFICE 55146 [facility] FRYMAN OUTPATIEN 5 5 PHYSICIAN EUG T VISIT S GROUP 15 MINUTES OFFICE 12081 [facility] LEIF OUTPATIEN 5 5 PHYSICIAN SUKUMAR T VISIT S GROUP 15 MINUTES [facility] 5 5 [facility] OUTPATIEN [facility] OFFICE 94844 [facility] OUTPATIEN 5 5 PHYSICIAN T VISIT S GROUP 10 MINUTES OFFICE 94534 [facility] JORJE OUTPATIEN [address] MINUTES OFFICE 89526 [facility] STORM 5 5 LEIA LEIA T VISIT 15 MINUTES OFFICE 89320 [facility] STORM 4 4 LEIA LEIA T VISIT 15 MINUTES OFFICE 53883 [facility] STORM 4 4 LEIA LEIA T VISIT 15 MINUTES OFFICE 40330 [facility] STORM 4 4 LEIA LEIA T VISIT 15 MINUTES OFFICE 82647 [facility] STORM 4 4 LEIA LEIA T VISIT 15 MINUTES OFFICE 86418 JONNA STORM 4 4 ZULEIKA ZULEIKA T VISIT 25 MINUTES OFFICE 63635 [facility] STORM 4 4 LEIA LEIA T VISIT 15 MINUTES OFFICE 31015 [facility] STORM 4 4 LEIA LEIA T VISIT 15 MINUTES OFFICE 30933 [facility] STORM 4 4 LEIA LEIA T VISIT 15 MINUTES OFFICE 91954 ALLIENASIM [facility] STORM 4 4 LEIA LEIA T VISIT 15 MINUTES OFFICE 06314 JONNA COYLE EMETERIO 4 4 ZULEIKA ZULEIKA T NEW 30 MINUTES OFFICE 56711 [facility] STORM 4 4 LEIA LEIA T VISIT 15 MINUTES OFFICE 55968 [facility]O STORM 4 4 LEIA LEIA T VISIT 15 MINUTES OFFICE 27118 [facility] STORM 3 3 LEIA LEIA T VISIT 15 MINUTES OFFICE 31879 [facility] STORM 3 3 LEIA LEIA T VISIT 15 MINUTES OFFICE 21941 [facility] STORM 3 3 LEIA LEIA T VISIT 15 MINUTES OFFICE 65149 [facility] STORM 3 3 LEIA LEIA T VISIT 15 MINUTES [facility]OSP[facility] OUTPAT[facility]EN INC T [facility] 3 [facility] OUTPATI[facility] EMERGENC[facility] 25390 [facility] DE[facility] T VISIT HIGH/URGE NT SEVERITY OFFICE 68381 [facility] 3 [facility] T VISIT 15 MINUTES OFFICE 85053 [facility] VALENCIA CONSULTAT 3 3 SYLVESTER SYLVESTER ION NEW/ESTAB PATIENT 60 MIN OFFICE 89969 [facility] 3 3 [facility] T VISIT 15 MINUTES OFFICE 29782 [facility] 3 3 [facility] T VISIT 15 MINUTES OFFICE 59311 [facility] 3 3 [facility] T VISIT 15 MINUTES [facility] T OFFICE 55314 [facility] 3 3 [facility] T VISIT 15 MINUTES OFFICE 77070 ABDIEL MILLER OUTPATIEN 3 3 T NEW 45 MINUTES OFFICE 86091 [facility] 3 3 [facility] T VISIT 15 MINUTES OFFICE 18694 [facility] 3 3 [facility] T VISIT 15 MINUTES OFFICE 91629 [facility] 3 3 [facility] LE[facility] T VISIT 15 MINUTES OFFICE 87904 [facility] 2 2 [facility] LEIA T VISIT 15 MINUTES OFFICE 94039 PRUITT TRA PRUITT TRA CONSULTAT 2 2 ION NEW/ESTAB PATIENT 60 MIN OFFICE 11174 [facility] 2 2 [facility] LE[facility] T VISIT 15 MINUTES OFFICE 92989 JON ALVARENGA OUTPATIEN 2 2 T VISIT 25 MINUTES OFFICE 36669 [facility] 2 2 [facility] T VISIT 15 MINUTES OFFICE 00054 [facility] 2 2 [facility] T VISIT 15 MINUTES [facility] T PERIODIC 46002 FLASH VIDALES PREVENTIV 2 2 PATRIA PATRIA E MED EST PATIENT 18-39 YRS [facility] T OFFICE 02284 JON ALVARENGA CONSULTAT 2 2 ION NEW/ESTAB PATIENT 60 MIN OFFICE 59266 FLASH VIDALES OUTPATIEN 2 2 PATRIA PATRIA T NEW 45 MINUTES OFFICE 70330 LAUREN LAUREN CONSULTAT 2 2 SHANNAN SHANNAN ION NEW/ESTAB PATIENT 60 MIN
--- OUTSIDE RECORDS SUMMARY | 2017-04-02 16:24 | External Medical Summary Rpt ---
Author Author , LUIS Organization [employer] Address Unknown Phone [email or web address] Care Team Providers Care Telehealth Nurse Educator Name Role Phone ARNOLD LEIA, ARNOLD Unavailable [...] Unavailable Unavailable INC, [facility] Unavailable Unavailable HOSPITAL, [facility] VALLE YOMI, VALLE YOMI Unavailable Unavailable VALLE YOMI, VALLE YOMI Unavailable Unavailable [facility] PH[facility]IAN GROUP, Unavailable Unavailable [facility] PH[facility]ICIAN [facility] PHYSICIANS [facility], Unavailable Unavailable [facility] PRUITT TRA, PRUITT TRA Unavailable Unavailable [facility] COYLE ZULEIKA, COYLE Unavailable [...] YOGI Unavailable Unavailable ISI FRANCO, Unavailable Unavailable JOAN JACKMAN Unavailable Unavailable Purpose Continuity of Care Document - 04-13-2012 through 2016 Problems Code Diagnosis DOS Provider Status [id number] ENCOUNTER 02-17-2017 [facility] GENERAL RTN W/O ABNORMAL FIND Z113 ENCOUNTER 02-17-2017 [facility] INFECTIONS SEXL MODE TRANSMISSN R413 OTHER 02-03-2017 [facility] R51 HEADACHE 02-03-2017 [facility] R5383 OTHER 02-03-2017 [facility] [id number] ATTENTION 01-24-2017 [facility] AND PHYSICIANS CONCENTRATI GROUP ON DEFICIT K5900 CONSTIPATIO 01-14-2017 [facility] N PHYSICIANS UNSPECIFIED GROUP K649 UNSPECIFIED 01-14-2017 [facility] PHYSICIANS HEMORRHOIDS GROUP K644 RESIDUAL 01-12-2017 [facility] HEMORRHOIDA PHYSICIANS, L SKIN TAGS PLLC L089 LOCAL INF 12-17-2016 [facility] THE SKIN & PHYSICIANS SUBCUTANEOU GROUP S TISSUE UNS L729 FOLLICULAR 12-17-2016 [facility] CYST THE PHYSICIANS SKIN & SUBQ GROUP TISSUE UNS M6289 OTHER 12-17-2016 [facility] SPECIFIED PHYSICIANS DISORDERS GROUP OF MUSCLE R350 FREQUENCY 12-17-2016 [facility] OF PHYSICIANS MICTURITION GROUP R531 WEAKNESS 12-17-2016 [facility] PHYSICIANS GROUP N390 URINARY 12-11-2016 [facility] INFECTION INC SITE NOT SPECIFIED Z720 TOBACCO USE 12-11-2016 [facility] K047 PERIAPICAL 10-22-2016 [facility] WITHOUT INC SINUS H6690 OTITIS 04-26-2016 [facility] MEDIA PHYSICIAN UNSPECIFIED GROUP UNSPECIFIED EAR J069 ACUTE UPPER 04-26-2016 [facility] PHYSICIAN RESPIRATORY GROUP INFECTION UNSPECIFIED J0190 ACUTE 01-07-2016 [facility] SINUSITIS PHYSICIANS UNSPECIFIED GROUP L0591 PILONIDAL 10-15-2015 [facility] CYST PHYSICIANS WITHOUT GROUP ABSCESS H524 PRESBYOPIA 09-29-2015 VALLE YOMI J329 CHRONIC 08-19-2015 [facility] SINUSITIS PHYSICIANS UNSPECIFIED GROUP H9193 UNSPECIFIED 07-04-2015 [facility] HEARING PHYSICIANS LOSS GROUP BILATERAL 15797 ACUT 05-28-2015 MARIANNA SUPPRATV [facility] MEDIA W/O SPONT RUP EARDRUM 7234 BRACHIAL 04-16-2015 [facility] NEURITIS OR PHYSICIANS GROUP RADICULITIS NOS 74724 OTHER 04-16-2015 [facility] MALAISE AND PHYSICIANS FATIGUE GROUP 20512 ATTENTION 04-16-2015 [facility] OR PHYSICIANS CONCENTRATI GROUP ON DEFICIT 5990 URINARY 04-03-2015 [facility] TRACT PHYSICIANS INFECTION GROUP SITE NOT SPECIFIED 7840 HEADACHE 04-03-2015 SENG FRANCO 06516 HEADACHE 03-25-2015 [facility] WITH SEXUAL IMAGING ASS ACTIVITY 7231 CERVICALGIA 03-01-2015 [facility] 57026 JAW PAIN 03-01-2015 [facility] 8472 LUMBAR 03-01-2015 [facility] SPRAIN AND PHYSICIANS, STRAIN PLL 8509 UNSPECIFIED 03-01-2015 [facility] CONCUSSION PHYSICIANS, [facility] 920 CONTUSION 03-01-2015 [facility] OF FACE PHYSICIANS, SCALP AND [facility] NECK EXCEPT EYE 95155 INJURY OF 03-01-2015 [facility] OTHER IMAGING ASS AND UNSPECIFIED 4610 ACUTE 01-20-2015 [facility] 462 ACUTE 12-17-2014 MAR[facility]NA PHARYNGITIS [facility] 84984 UNS 10-15-2014 [facility] GASTRITIS&G ASTRODUODIT IS W/O MENTION HEMORR 4619 ACUTE 08-17-2014 [facility] SINUSITIS, UNSPECIFIED 3674 PRESBYOPIA 06-14-2014 SCIFRES ANG V032 NEED PROPH 05-23-2014 [facility] VACCINATION W/TUBERCULO SIS VACCINE V705 HEALTH 05-23-2014 [facility] [place] [address] OBESITY, 05-01-2014 [facility] UNSPECIFIED 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 37093 UNSPECIFIED 03-25-2014 COYLE ZULEIKA ACUTE NONSUPPURAT MANDY OTITIS MEDIA 4779 ALLERGIC 03-25-2014 CO[facility] ZULEIKA RHINITIS CAUSE UNSPECIFIED 84080 OSTEOARTHRO 02-05-2014 [facility] S INVLV MX SITES BUT NOT SPEC GEN 3829 UNSPECIFIED 11-19-2013 [facility] OTITIS MEDIA 4660 ACUTE 11-19-2013 [facility] BRONCHITIS 3814 NONSUPPRATV 09-20-2013 COYLE ZULEIKA OTITIS MEDIA NOT SPEC ACUT/CHRON 470 DEVIATED 09-20-2013 CO[facility] ZULEIKA NASAL SEPTUM 41614 UNSPECIFIED 09-11-2013 [facility]UP[facility] INFECTIVE OTITIS EXTERNA 80384 PEPTC ULCR 06-25-2013 [facility] UNS ACUT/CHRN W/O HEMOR PERF/OBST 14563 ABDOMINAL 06-25-2013 [facility] PAIN, GENERALIZED 77269 ABDOMINAL 06-07-2013 [facility] UNSPECIFIED INC SITE 27509 ABDOMINAL 06-07-2013 GABRIEL BRO PAIN, PERIUMBILIC V2651 TUBAL 06-07-2013 [facility] LIGATION RODRIGUEZ STERILIZATI ON STATUS V4579 OTHER 06-07-2013 [facility] ACQUIRED RODRIGUEZ ABSENCE OF ORGAN V7651 SPECIAL 05-17-2013 [facility] SCREENING SYLVESTER FOR MALIGNANT NEOPLASMS COLON 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 7242 LUMBAGO 01-19-2013 [facility] 7213 LUMBOSACRAL 12-07-2012 ABDIEL MILLER [...] PATRIA LEIOMYOMA OF UTERUS 3688 OTHER 05-03-2012 [facility] SPECIFIED [facility]ICAL VISUAL IMAGING ASS DISTURBANCE S 6170 ENDOMETRIOS 05-03-2012 VIDALES PATRIA IS OF UTERUS 6212 HYPERTROPHY 05-03-2012 VIDALES PATRIA OF UTERUS 7804 DIZZINESS 05-03-2012 [facility] GIDDINESS IMAGING ASS V692 PROBLEMS 04-19-2012 COMBINED RELATED TO PHYSICIANS HIGH-RISK LA SEXUAL BEHAVIOR 41997 PRADIP 04-17-2012 LAUREN MIGRAINE SHANNAN NEC W/O [...] LO 80 5- 1- 00 01 ve CO 00 20 20 18 AI AM 90 [...] Procedure DOS Code Location Performer Comment IADNA 07825 [facility] NEISSER[facility] ER JR GONORRHOE AE AMPLIFIED PROBE TQ IADNA 69936 [facility] CHLAMYDIA [facility] ER JR TRACHOMAT IS AMPLIFIED PROBE TQ CYTP C/V 62038 [facility] AUTO THIN 7 [facility] ER JR LYR PREPJ SCR MNL RESCR PHYS MRI BRAIN 48895 [facility] LAYNE BRAIN 7 MEDICAL STEM W/O IMAGING W/CONTRAS ASS T MATERIAL ANTINUCLE 04384 [facility] AR [facility] [place] [address] [facility] FREE 7 [facility] [place] [address] [facility] THYROID 7 [facility] STIMULATI INC INC NG HORMONE TSH COMPREHEN 90711 [facility] SIVE [facility] METABOLIC INC INC PANEL PROTEIN 33097 [facility] ELECTROPH 7 [facility] ORETIC INC INC FRACTJ&QU ANTJ SERUM SEDIMENTA 83550 [facility] TIMAC RATE 7 [facility] RBC INC INC NON-AUTOM ATED CYANOCOBA 63286 [facility] KEISHA 7 [facility] VITAMIN INC INC B-12 BLOOD 33456 [facility] COUNT 7 [facility] COMPLETE INC INC AUTO&AUTO DIFRNTL WBC URNLS DIP 99652 [facility] STICK/TAB INC INC LET RGNT AUTO W/O MICROSCOP Y CULTURE 87073 [facility] BACTERIAL 7 [facility] INC INC QUANTTATI VE COLONY COUNT URINE THERAPEUT 65522 [facility] IC 6 PHYSICIAN PROPHYLAC GROUP TIC/DX INJECTION SUBQ/IM INJECTION J0696 [facility] 6 PHYSICIAN CEFTRIAXO GROUP NE SODIUM PER 250 MG OPH 36398 [facility] 6 XM&EVAL COMPRHNSV ESTAB PT 1/> THERAPEUT 77611 [facility] IC 6 PHYSICIAN SUKUMAR PROPHYLAC S GROUP TIC/DX INJECTION SUBQ/IM INJECTION J1040 [facility] 6 PHYSICIAN SUKUMAR METHYLPRE S GROUP DNISOLONE ACETATE 80 MG INJECTION J0696 [facility] 6 PHYSICIAN SUKUMAR CEFTRIAXO S GROUP NE SODIUM PER 250 MG INJECTION J0696 [facility] 5 PHYSICIAN SUKUMAR CEFTRIAXO S GROUP NE SODIUM PER 250 MG INJECTION J1040 [facility] 5 PHYSICIAN SUKUMAR METHYLPRE S GROUP DNISOLONE ACETATE 80 MG THERAPEUT 06030 [facility] IC 5 PHYSICIAN SUKUMAR PROPHYLAC S GROUP TIC/DX INJECTION SUBQ/IM THERAPEUT 23781 [facility] REDDYAN IC 5 [facility] TIC/DX INJECTION SUBQ/IM INJECTION J1100 [facility] KAYE 5 [facility] SONE SODIUM PHOSPHATE 1 MG CULTURE 66982 [facility] BACTERIAL 5 [facility] INC [place] [address] SENG GALAN HEAD/BRAI 5 S. JOAN N W/O CONTRAST MATERIAL LOCM Q9967 [facility] 300-399 5 [facility] MG/ML INC [place] [address] [facility] BISHOPPASCALE ANGIOGRAP 5 MEDICAL RODRIGUEZ HY HEAD IMAGING W/CONTRAS ASS T/[place] [address] [facility] [place] LAYNE ALL MAXILLOFA 5 MEDICAL CIAL W/[place] [address] [facility] [place] [place] [place] L[facility]NE ALL CERVICAL 5 MEDICAL SPINE W/[place] [address] [facility] [place] [place] [place] [facility]AYNE ALL HEAD/BRAI 5 MEDICAL N W/O IMAGING CONTRAST ASS MATERIAL THERAPEUT 19741 [facility] RECINOS IC 5 [facility] TIC/DX INJECTION SUBQ/IM INJECTION J1040 [facility] JORJE 5 [facility] DNISOLONE ACETATE 80 MG INJECTION J0696 [facility] KHANRON 5 [facility] [place] [address] [place] [address] JAZMIN FRANCO ADAMA HEAD/BRAI 5 MEDICAL N W/O IMAGING CONTRAST ASS MATERIAL COLLECTIO 86025 [facility] N VENOUS 5 [facility] [place] [address] [facility] [place] [address] [facility] THYROID 5 [facility] STIMULATI INC INC NG HORMONE TSH COMPREHEN 37685 [facility] SIVE 5 [facility] METABOLIC INC INC PANEL 25 78273 [facility] HYDROXY 5 [facility] INCLUDES INC INC FRACTIONS IF PERFORMED BLOOD 63855 [facility] COUNT 5 [facility] COMPLETE INC INC AUTO&AUTO DIFRNTL WBC OPHTH 55027 SCIFRSecure-24 SCIFRSecure-24 MEDICAL 4 ANG ANG XM&EVAL COMPRHNSV ESTAB PT 1/> SKIN TEST 39907 [facility] AGUILA 4 LEIA LEIA TUBERCULO SIS [...] LEIA CYANOCOBA KEISHA TO 1000 MCG ESOPHAGOG 57551 [facility] ASTRODUOD 3 [facility] ENOSCOPY INC INC TRANSORAL DIAGNOSTI C COLONOSCO 43263 ERIK VALENCIA PY FLX DX 3 SYLVESTER SYLVESTER W/COLLJ SPEC WHEN PFRMD RADEX ABD 04495 [facility] COMPL 3 [facility] AQT ABD INC INC W/S/E/D VIEWS 1 [place] [address] [facility] INFUSION 3 [facility] THERAPY INC INC PROPHYLAX IS/DX EA HOUR COMPREHEN 87557 [facility] SIVE 3 [facility] [address] [facility] AMYLASE 3 [place] [address] [facility] LIPASE 3 [facility] INC INC BLOOD 61857 [facility] COUNT 3 [facility] COMPLETE INC INC AUTO&[place] [address] [facility] INFUSION 3 [facility] THERAPY/P INC INC ROPHYLAXI S /DX 1ST TO 1 HR THERAPEUT 92549 [facility] IC 3 [facility] INJECTION INC INC IV PUSH EACH NEW DRUG URNLS DIP 20976 [facility] 3 [facility] STICK/TAB INC INC LET REAGENT AUTO MICROSCOP Y INJECTION J3420 [facility] AGUILA VIT B-12 3 LEIA LEIA CYANOCOBA KEISHA TO 1000 MCG RADEX 60692 P[facility] PASCALE SPINE 3 RODRIGUEZ RODRIGUEZ LUMBOSACR [...] LEIA CYANOCOBA KEISHA TO 1000 MCG RADEX 45137 PRUITT TRA PRUITT TRA SPINE 2 LUMBOSACR AL 2/3 VIEWS INJECTION J3420 [facility] KELLEYOLD VIT B-12 2 LEIA LEIA CYANOCOBA KEISHA TO 1000 MCG INJECTION J0696 [facility] KELLEYOLD 2 LEIA LEIA CEFTRIAXO NE SODIUM PER 250 MG HYSTEROSC 78088 FLASH VIDALES OPY 2 PATRIA PATRIA ENDOMETRI AL ABLATION ANES 78937 [facility] HYSTEROSC 2 ANESTH ISI OPY&/HYST OF THE EROSALPIN BLUE GOGRAPHY W/BX BASIC 78064 [facility] METABOLIC 2 [facility] PANEL INC INC CALCIUM TOTAL BLOOD 42065 [facility] COUNT 2 [facility] COMPLETE INC INC AUTO&AUTO DIFRNTL WBC URNLS DIP 41720 FLASH VIDALES 2 PATRIA PATRIA STICK/TAB LET RGNT NON-AUTO W/O MICRSCP MRI BRAIN 06242 JAZMIN PASCALE BRAIN 2 MEDICAL RODRIGUEZ STEM W/[place] [address] FLASH VIDALES TRANSVAGI 2 PATRIA PATRIA NAL INJ A9577 [facility] GADOBENAT 2 [facility] E INC INC DIMEGLUMI NE MULTIHANC E PER ML BLOOD 32542 [facility] COUNT 2 [facility] COMPLETE INC INC AUTO&AUTO DIFRNTL WBC ENDOMETRI 39902 FLASH VIDALES AL BX 2 PATRIA PATRIA W/WO ENDOCERVI X BX W/O DILAT SPX CUL BACT 09910 COMBIN[facility] COMBINED XCPT 2 PHYSICIAN PHYSICIAN URINE S LA S LA BLOOD/STO OL AEROBIC ISOL ANTIBODY 41277 COMBINED COMBINED CHLAMYDIA 2 PHYSICIAN PHYSICIAN S LA S LA PERCUTANE 48110 LAUREN LAUREN OUS TESTS 2 SHANNAN SHANNAN W/ALLERGE MONICA EXTRACTS INTRACUTA 73346 LAUREN LAUREN NEOUS 2 SHANNAN SHANNAN TESTS W/ALLERGE MONICA EXTRACTS DETERMINA 83979 SCIFRES SCIFRES TION 2 ANG ANG REFRACTIV E STATE OPHTH 17284 SCIFRES SCIFRES MEDICAL 2 ANG ANG XM&EVAL COMPRE NEW PT 1/> VST Encounters Encounter Start End Date Code Location Performer Type Date INITIAL 03459 [facility] PREVENTIV 7 7 PHYSICIAN E S GROUP MEDICINE NEW PATIENT 40-64YRS OFFICE 40584 [facility] PAVEZ OUTPATIEN 7 7 PHYSICIAN T NEW 45 S GROUP MINUTES OFFICE 64285 [facility] FRYMAN OUTPATIEN 7 7 PHYSICIAN T VISIT S GROUP 15 MINUTES EMERGENCY 95892 [facility] SCHUSTER 7 7 PHYSICIAN DEPARTMEN S, PLLC T VISIT MODERATE SEVERITY EMERGENCY 96098 [facility] 7 7 [facility] DEPARTMEN INC T VISIT LOW/MODER SEVERITY [facility] OUTPATIEN INC T OFFICE 82663 [facility] OUTPATIEN 7 7 PHYSICIAN T VISIT S GROUP 25 MINUTES [facility]OSP[facility] OUTPATIEN INC T OFFICE 92399 [facility] OUT[facility]IEN 7 7 [facility] T VISIT 5 INC MINUTES [facility] OUTPATIEN INC T [facility] OUTPATIEN INC T OFFICE 41454 [facility] OUT[facility]IEN 7 7 [facility] T VISIT 5 INC MINUTES OFFICE 42695 [facility] ROSALES OUTPATIEN 6 6 PHYSICIAN T VISIT GROUP 15 MINUTES OFFICE 59488 [facility] JORJE OUTPATIEN 6 6 PHYSICIAN SUKUMAR T VISIT S GROUP 15 MINUTES OFFICE 26294 [facility] WISE TER OUTPATIEN 6 6 PHYSICIAN T VISIT S GROUP 15 MINUTES OFFICE 16398 [facility] JORJE OUTPATIEN 6 6 PHYSICIAN SUKUMAR T VISIT S GROUP 15 MINUTES OFFICE 99459 [facility] LEIF OUTPATIEN 5 5 PHYSICIAN SUKUMAR T VISIT S GROUP 10 MINUTES OFFICE 39376 [facility] ROJASADDIS OUTPATIEN 5 5 [facility] 15 MINUTES OFFICE 64359 [facility] MONGIARDO OUTPATIEN 5 5 PHYSICIAN FRA T NEW 30 S GROUP MINUTES OFFICE 51370 [facility] JORJE OUTPATIEN 5 5 [facility] 10 MINUTES OFFICE 31708 [facility] OUTPATIEN 5 5 PHYSICIAN T VISIT S GROUP 15 MINUTES OFFICE 18038 [facility] OUTPATIEN 5 5 PHYSICIAN T VISIT S GROUP 15 MINUTES [facility] OUTPATIEN INC T [facility] 5 5 [facility] OUTPATIEN INC T OFFICE 52304 [facility] LEIF OUTPATIEN 5 5 PHYSICIAN SUKUMAR T VISIT S GROUP 15 MINUTES EMERGENCY 44821 [facility] YADAV 5 5 PHYSICIAN SUKUMAR DEPARTMEN S, PLLC T VISIT HIGH/URGE NT SEVERITY OFFICE 90357 [facility] JORJE OUTPATIEN 5 5 [facility] V[facility] HOSPITAL 15 MINUTES OFFICE 16896 [facility] FRYMAN OUTPATIEN 5 5 PHYSICIAN EUG T VISIT S GROUP 15 MINUTES OFFICE 37965 [facility] LEIF OUTPATIEN 5 5 PHYSICIAN SUKUMAR T VISIT S GROUP 15 MINUTES [facility] OUTPATIEN [facility] OUTPATIEN [facility] OFFICE 47748 [facility] OUTPATIEN 5 5 PHYSICIAN T VISIT S GROUP 10 MINUTES OFFICE 89046 [facility] JORJE OUTPATIEN [address] MINUTES OFFICE 86008 [facility] STORM 5 5 LEIA LEIA T VISIT 15 MINUTES OFFICE 10346 [facility] STORM 4 4 LEIA LEIA T VISIT 15 MINUTES OFFICE 71833 [facility] STORM 4 4 LEIA LEIA T VISIT 15 MINUTES OFFICE 99011 [facility] STORM 4 4 LEIA LEIA T VISIT 15 MINUTES OFFICE 13083 [facility] STORM 4 4 LEIA LEIA T VISIT 15 MINUTES OFFICE 23077 JONNA STORM 4 4 ZULEIKA ZULEIKA T VISIT 25 MINUTES OFFICE 82014 [facility] STORM 4 4 LEIA LEIA T VISIT 15 MINUTES OFFICE 14334 [facility] STORM 4 4 LEIA LEIA T VISIT 15 MINUTES OFFICE 05704 [facility] STORM 4 4 LEIA LEIA T VISIT 15 MINUTES OFFICE 82549 ALLIENASIM [facility] STORM 4 4 LEIA LEIA T VISIT 15 MINUTES OFFICE 12783 JONNA COYLE EMETERIO 4 4 ZULEIKA ZULEIKA T NEW 30 MINUTES OFFICE 41204 [facility] M[facility]O STORM 4 4 LEIA LEIA T VISIT 15 MINUTES OFFICE 13817 [facility] MINGO STORM 4 4 LEIA LEIA T VISIT 15 MINUTES OFFICE 06168 [facility] STORM 3 3 LEIA LEIA T VISIT 15 MINUTES OFFICE 31037 [facility] STORM 3 3 LEIA LEIA T VISIT 15 MINUTES OFFICE 58418 [facility] STORM 3 3 LEIA LEIA T VISIT 15 MINUTES OFFICE 73788 [facility] STORM 3 3 LEIA LEIA T VISIT 15 MINUTES [facility]OS[facility] OUTPATIEN INC T [facility] 3 3 [facility] OUTPATIEN INC T EMERGENCY 45609 [facility] 3 3 [facility] DEPARTMEN INC T VISIT HIGH/URGE NT SEVERITY OFFICE 18160 [facility] STORM 3 3 LEIA LEIA T VISIT 15 MINUTES OFFICE 14685 ERIK VALENCIA CONSULTAT 3 3 SYLVESTER SYLVESTER ION NEW/ESTAB PATIENT 60 MIN OFFICE 56113 [facility] STORM 3 3 LEIA LEIA T VISIT 15 MINUTES OFFICE 82837 [facility] STORM 3 3 LEIA LEIA T VISIT 15 MINUTES OFFICE 09414 [facility] STORM 3 3 LEIA LEIA T VISIT 15 MINUTES [facility]OSPITAL [facility] OUTPATIEN INC T OFFICE 38315 [facility] AGUILA OUTPATIEN 3 3 LEIA LEIA T VISIT 15 MINUTES OFFICE 44491 ABDIEL MILLER OUTPATIEN 3 3 T NEW 45 MINUTES OFFICE 92129 [facility] AGUILA OUTPATIEN 3 3 LEIA LEIA T VISIT 15 MINUTES OFFICE 40976 [facility] AGUILA OUTPATIEN 3 3 LEIA LEIA T VISIT 15 MINUTES OFFICE 06250 [facility] AGUILA OUTPATIEN 3 3 LEIA LEIA T VISIT 15 MINUTES OFFICE 17005 [facility] AGUILA OUTPATIEN 2 2 LEIA LEIA T VISIT 15 MINUTES OFFICE 31582 PRUITT TRA PRUITT TRA CONSULTAT 2 2 ION NEW/ESTAB PATIENT 60 MIN OFFICE 25007 [facility] AGUILA OUTPATIEN 2 2 LEIA LEIA T VISIT 15 MINUTES OFFICE 52331 JON ALVARENGA OUTPATIEN 2 2 T VISIT 25 MINUTES OFFICE 41212 [facility] AGUILA OUTPATIEN 2 2 LEIA LEIA T VISIT 15 MINUTES OFFICE 81332 [facility] AGUILA OUTPATIEN 2 2 LEIA LEIA T VISIT 15 MINUTES [facility]OSP[facility] OUTPATIEN INC T PERIODIC 48798 FLASH VIDALES PREVENTIV 2 2 PATRIA PATRIA E MED EST PATIENT 18-39 YRS [facility] 2 2 [facility] OUTPATIEN INC T OFFICE 85190 JON ALVARENGA CONSULTAT 2 2 ION NEW/ESTAB PATIENT 60 MIN OFFICE 31763 FLASH VIDALES OUTPATIEN 2 2 PATRIA PATRIA T NEW 45 MINUTES OFFICE 32548 LAUREN LAUREN CONSULTAT 2 2 SHANNAN SHANNAN ION NEW/ESTAB PATIENT 60 MIN
--- OUTSIDE RECORDS SUMMARY | 2017-04-02 16:25 | External Medical Summary Rpt ---
Author Author LUIS Brock, [employer] Organization [employer] Address Unknown Phone Unavailable
--- OUTSIDE RECORDS SUMMARY | 2017-04-02 16:25 | External Medical Summary Rpt ---
Demographics Preferred Language Azerbaijani Marital Status Unknown Rastafarian Affiliation Unknown Race Unknown Ethnic Group Unknown Author Author , LUIS SMITH Address Unknown Phone Immunization Unable to retrieve immunization data due to connection failure with Immunization Registry. Please try again later.
--- OUTSIDE RECORDS SUMMARY | 2017-04-02 16:25 | External Medical Summary Rpt ---
Demographics Preferred Language Guatemalan Marital Status Unknown Latter-Day Affiliation Unknown Race Unknown Ethnic Group Unknown Author Author , LUIS SMITH Address Unknown Phone Immunization Unable to retrieve immunization data due to connection failure with Immunization Registry. Please try again later.
== END 2017-04-02 16:25 | disposition home or self-care (01) ==
LOC: ER 16:00
DX: M54.5 Low back pain (principal)

== ENCOUNTER 2017-07-20 14:01 | Emergency (ER) | payer MEDICAID ==
[~2017-07-20] VITALS: Ht 170.2 cm; Wt 97.5 kg
[~2017-07-20 14:01] MED LIST changes: +FLEXERIL10 MG PO; +NAPROXEN SODIU500 MG PO
--- OUTSIDE RECORDS SUMMARY | 2017-07-20 14:06 | External Medical Summary Rpt | CCD ---
Demographics Preferred Language Spanish Marital Status Unknown Anabaptist Affiliation Unknown Race Unknown Ethnic Group Unknown Author Author LUIS Address Unknown Phone Immunization No patient found.
--- OUTSIDE RECORDS SUMMARY | 2017-07-20 14:06 | External Medical Summary Rpt | CCD ---
Author Author , [facility] Organization [facility] Address Unknown Phone [email or web address] Care Team Providers Care Technical Aide Name Role Phone TRE LUNSFORD MD, Unavailable Unavailable TRE LUNSFORD MD Purpose Continuity of Care Document - 06-07-2013 through 2016 Problems Code Diagnosis DOS Provider Status 789.00 789.00 06-07-2013 [facility] UNSPECIFIED SITE K59.00 CONSTIPATIO N, UNSPECIFIED K64.4 RESIDUAL HEMORRHOIDA L SKIN TAGS M54.5 LOW BACK PAIN S00.83XA CONTUSION OF OTHER PART OF HEAD, [...] ia de te s n re d SO 00 10 0 No DI 40 [...] 013 gm/dL ed SerPl-m 20:20 Cnc Globuli 3.1 1.3-3.2 complet n 013 gm/dL ed Ser-mCn 20:20 c Albumin 1.1 UNK 1.1-1.8 complet /Glob 013 ed SerPl-m 20:20 Rto Bilirub 0.3 0.2-1.0 complet 013 mg/dL ed SerPl-m 20:20 Cnc AST 10-03-2 16 U/L 15-37 complet SerPl-c 013 ed Cnc 20:20 ALT 10-03-2 37 U/L 30-65 complet SerPl-c 013 ed Cnc 20:20 ALP 10-03-2 104 U/L 50-136 complet SerPl-c 013 ed Cnc 20:20 Amylase SerPl-cCnc (06-07-2013 20:20) Amylase 10-03-2 31 U/L 25-115 complet 013 ed SerPl-c 20:20 Cnc LIPASE (06-07-2013 20:20) LIPASE 10-03-2 108 U/L 73-393 complet 013 ed 20:20 CBC with AUTO DIFF (06-07-2013 20:20) WBC # 10-03-2 9.8 4.8-10. complet Bld 013 K/MM3 8 ed Auto 20:20 RBC # 10-03-2 4.15 4.2-5.4 complet Bld 013 M/mm3 ed Auto 20:20 Hgb -03-2 13.8 12.2-16 complet Bld-mCn 013 g/dL .2 ed c 20:20 Hct Fr 06-07-2 39.2 % 37.0-47 complet Bld 013 .0 ed 20:20 MCV RBC 10-03-2 94.4 fl 82.2-97 complet 013 .8 ed 20:20 MCH RBC -03-2 33.3 pg 27-31.2 complet Qn 013 ed Auto 20:20 MEAN 10-03-2 35.3 31.8-35 complet CORPUSC 013 g/dl .4 ed ULAR 20:20 HGB CONC RDW RBC 10-03-2 14.3 % 11.5-17 complet Auto 013 .5 ed 20:20 Platele 10-03-2 249 142-424 complet t Bld 013 K/mm3 ed Ql 20:20 Manual MEAN 10-03-2 8.1 fl 7.4-10. complet PLATELE 013 4 ed T 20:20 VOLUME Granulo -03-2 67.5 % 37.0-80 complet cytes 013 .0 [...] Bld 20:20 Auto URINALYSIS/COMPLETE (06-07-2013 19:35) URINE 10-03-2 YELLOW YELLOW complet COLOR 013 ed 19:35 URINE 10-03-2 CLEAR CLEAR complet APPEARA 013 ed NCE 19:35 URINE 10--2 NEGATIV NEG complet GLUCOSE 013 E ed - 19:35 DIPSTIC K URINE 10--2 NEGATIV NEG complet BILIRUB 013 E ed IN - 19:35 DIPSTIC K URINE 10-03-2 NEGATIV NEG complet KETONE 013 E mg/dL ed 19:35 URINE 10-03-2 1.020 1.005-1 complet SPECIFI 013 UNK .030 ed C 19:35 GRAVITY URINE 10-03-2 TRACE-L NEG complet BLOOD 013 YSED ed 19:35 URINE 10-03-2 7.0 UNK 5.0-8.5 complet PH 013 ed 19:35 URINE 10-03-2 NEGATIV NEG complet PROTEIN 013 E mg/dL ed - 19:35 DIPSTIC K URINE 10-03-2 0.2 NEG complet UROBILI 013 E.U./dL ed NOGEN - 19:35 DIPSTIC K URINE 10-03-2 NEGATIV NEG complet NITRATE 013 E ed - 19:35 DIPSTIC K URINE 10-03-2 NEGATIV NEG complet LEUK 013 E ed ESTERAS 19:35 E URINE OCC 0 complet RBC 013 rbc/hpf ed 19:35 URINE OCC O complet WBC 013 wbc/hpf ed 19:35 URINE 10-20 0-5 complet SQUAMOU 013 #/hpf ed S CELLS 19:35 URINE TRACE O complet BACTERI 013 ed A 19:35 Encounters Encounter Start End Date Code Location Performer Type Date Emergency TRENA LUNSFORD (ER) 3 19:39 3 21:28 [facility] TRE
--- OUTSIDE RECORDS SUMMARY | 2017-07-20 14:06 | External Medical Summary Rpt | CCD ---
Demographics Preferred Language Serbian Marital Status Unknown Advent Affiliation Unknown Race Unknown Ethnic Group Unknown Author Author [facility] Address Unknown Phone Immunization No patient found.
--- OUTSIDE RECORDS SUMMARY | 2017-07-20 14:06 | External Medical Summary Rpt | CCD ---
Author Author , [facility] Organization [facility] Address Unknown Phone [email or web address] Care Team Providers Care Enamel Drier Name Role Phone RTE LUNSFORD MD, Unavailable Unavailable TRE LUNSFORD MD Purpose Continuity of Care Document - 06-07-2013 through 2016 Problems Code Diagnosis DOS Provider Status 789.00 789.00 06-07-2013 [facility] UNSPECIFIED SITE K59.00 CONSTIPATIO N, UNSPECIFIED [...] TRENA LUNSFORD (ER) 3 19:39 3 21:28 [facility] TRE
--- NOTE | 2017-07-20 14:56 | Urgent Treatment Center Report ---
See Addendum History of Present Issue Date/Time Seen by Provider 07/20/17 1406 Visit Reason Pt arrived:Walked Presenting Problem:SORE THROAT, LEFT EAR PAIN, BODY ACHES SINCE YESTERDAY Location if Accident: Onset of symptoms date/time:/ or onset unknown for:MEDICAL HX UNKNOWN Have you (or family members/close friends) recently traveled outside the [place]? N If Yes, where/when: Have you had exposure to infectious disease within the past month? TB? Other? Specify: c/o sore throat and ear pain. Both localized to the left. Bodyaches, chills, "just feel drained". Woke up not feeling well yesterday. No known fevers. Hasn't taken or tried anything for symptoms. No known sick contacts. Wonders if a B12 shot wouldn't make her feel better. Source patient Exam Limitations no limitations ALLERGIES Coded Allergies: No Known Drug Allergies (08/11/15) History Medical History General CAD? No Angina: No DC: No Hypertension? No Hyperlipidemia? No CHF? No DVT? No PE? No COPD? No Asthma? No Anemia? No GERD? No Gastric ulcers? No GI Bleed? No Hernia? No Thyroid Problems? No Hypothyroidism? No CVA? No Seizures? No Diabetes? No Renal Insuffiency? No UTI? No Stones? No GB Disease: Yes Nephritic Syndrome? No Asplenia? No Hepatitis? No Sickle Cell Disease? No Arthritis? No Migraines? No Cataracts? No Glaucoma? No MRSA? No HIV? No TB? No Anxiety? No Depression? No Cancer? No Immunization HX DT/Tetanus Unknown Surgical Hx Previous Surgery?Y GALLBLADDER TUBAL Social History Smoking Hx Smoker: Current Every Day Smoker Tobacco: Yes Type Cigarettes Packs/day < 1 Pack Alcohol Alcohol: No Review of Systems All Other Systems Reviewed and Negative Constitutional see HPI Eyes denies drainage ENT see HPI, nose discharge ("I always have this though"). denies: ear discharge, nose congestion, throat swelling. Respiratory denies shortness of breath, denies wheezing Cardiovascular denies chest pain Gastrointestinal denies no symptoms reported Musculoskeletal see HPI Skin denies rash Psychiatric/Neurological denies headache Physical Exam Vital Signs Vital Signs Date Time Temp Pulse Resp B/P Pulse O2 O2 Flow FiO2 Ox Delivery Rate 07/20 1426 97.1 88 18 155/81 97 General Appearance normal appearance, no apparent distress Eye Exam - bilateral eye normal exam Ear, Nose, Throat ginny EAC and right TM unremarkable, left TM intact, pearly russo but with serous fluid present behind TM, minimal bulging, mild nasal congestion, thick PND Neck supple, full range of motion, tender lateral (consistent w/lt eustachian tub) Respiratory Status No: respiratory distress, productive cough, non productive cough. Lung Sounds anterior: lungs clear. posterior: lungs clear. bilateral: lungs clear. Cardiovascular regular rate/rhythm, no peripheral edema, no murmur Neurologic alert, oriented x 3 Mental status normal mood/affect Skin normal color, warm/dry Lymphatic no adenopathy Medical Decision Making LABS/Meds/Orders Pt receiving controlled substance in ED? No Results/Orders Laboratory Tests 07/20/17 1441: Influenza Type A Ag NOT DETECTED, Influenza Type B Ag NOT DETECTED Current Medication Orders Sig/Nydia Start time Last Medication Dose Route Stop Time Status Admin Methylprednisolone 80 MG ONCE ONE 07/20 1500 AC Acetate IM 07/20 1501 Orders Procedure Date/time Status [facility] FLU A,B 07/20 1441 Complete Departure Departure Time of Disposition 1452 Disposition DC Home or Self Care(routine) Clinical Impression Primary Impression: Acute serous otitis media, left ear Qualifiers: Recurrence: not specified as recurrent Qualified Code: H65.02 - Acute serous otitis media, left ear Secondary Impressions: Upper respiratory virus Condition STABLE Referrals NO REFERRAL Follow up with primary care or if you can't get in there, return to [facility] IMMEDIATELY for new or worsening symptoms OR no noticeable improvement over the next 48-72 hours. 911 for difficulty breathing or swallowing. Patient Instructions DI for Viral Upper Respiratory Infection -- Adult Additional Instructions * No sign of bacterial infection. Likely viral. Virus can take 7-14 days to run their course * Extra fluid behind your left ear drum that is NOT infected. If pain worsens or fevers develop, be sure to follow up. * Monitor Temp. Seek treatment if fevers develop * Encourage fluids, water, gatorade, powerade, pedialyte if /toddler/child * warm salt water gargles * warm fluids * sore throat lozenges * sleep elevated * humidifier/vaporizer * flonase 2 sprays each nostril daily but may take 2-3 days to notice improvement with it. * Start Claritin. Use caution with sudafed as it can cause elevation in blood pressure * Your blood pressure was slightly elevated today. Keep an eye on this and if remains >140/90, discuss with primary care Discharge Counseling Counseled pt/family regarding diagnosis, test results, medications/RX, home care, follow up needs at 1502
[2017-07-20 15:14] VITALS: BP 150/78
== END 2017-07-20 15:15 | disposition home or self-care (01) ==
LOC: UTC 14:01
DX: H65.02 Acute serous otitis media, left ear (principal); F17.210 Nicotine dependence, cigarettes, uncomplicated
CPT/HCPCS: J1030